=== PATIENT | female | born 1980 | race Caucasian/White ===

== ENCOUNTER 2016-04-25 01:19 | Emergency (ER) | payer BC ==
[2016-04-25 01:32] VITALS: BP 134/97
[2016-04-25] MEDS ORDERED: Sulfamethoxazole/Trimethoprim 800-160 MG Tab PO ONE (02:39)
--- NOTE | 2016-04-25 02:45 | EDM.PDOC ---
ED HPI RENAL/ - General Chief Complaint: Genitourinary Problem Stated Complaint: BLOOD IN URINE Time Seen by Provider: 04/25/16 01:34 Source of Information: Reports: Patient, RN notes reviewed History Limitations: Reports: No limitations - History of Present Illness INITIAL COMMENTS - FREE TEXT/NARRATIVE: The patient states that she developed urinary symptoms, including dysuria, or urgency, and frequency sometime this evening, then developed gross hematuria around 23:00 tonight. She reports a low back ache, but no flank pain. She has had chills and decreased appetite, but no fever, nausea, vomiting, constipation , or diarrhea. She has had similar symptoms in the past, related to a urinary tract infection. Of note, the patient has a history of interstitial cystitis, previously treated with bladder dilatation. - Related Data Allergies/ADRs: Allergies Allergy/AdvReac Type Severity Reaction Status Date / Time fluoxetine HCl [From Prozac] Allergy Unknown Hallucinati Verified 04/25/16 01:32 ons prednisone Allergy Unknown Hallucinati Verified 04/25/16 01:32 ons Home Meds: Home Meds Omeprazole Magnesium [Prilosec Otc] 20 mg PO BID 04/14/14 [History] Sulfamethoxazole/Trimethoprim [Bactrim Ds Tablet] 1 tab PO Q12H #13 tablet 04/25 [Rx] Venlafaxine [Effexor XR 24 Hr] 75 mg PO DAILY 04/25/16 [History] Past Medical History HEENT History: Reports: Allergic rhinitis, Impaired vision Other HEENT History: wears glasses Gastrointestinal History: Reports: GERD Genitourinary History: Reports: Other (see below) (Interstitial cystitis) 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: Psychiatric History: Reports: Anxiety, Depression - Past Surgical History HEENT Surgical History: Reports: Oral surgery ([place] teeth extraction), Tonsillectomy GI Surgical History: Reports: Cholecystectomy Female Surgical History: Reports: section (x 2), Tubal ligation, Other (see below) (Bladder dilatation) Musculoskeletal Surgical History: Reports: Other (see below) (Right hand ligament repair) Social & Family History - Tobacco Use Smoking Status *Q: Never Smoker Second Hand Smoke Exposure: No - Caffeine Use Caffeine Use: Reports: Coffee, Soda, Tea - Alcohol Use Alcohol Use History: Yes Alcohol Use Frequency: Rarely - Recreational Drug Use Recreational Drug Use: No - Living Situation & Occupation Living situation: Reports: , with spouse, with family (2 kids) 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) ED ROS GENERAL - Review of Systems Review Of Systems: See Below Constitutional: Reports: no symptoms HEENT: Reports: No symptoms Respiratory: Reports: No Symptoms Cardiovascular: Reports: No symptoms Endocrine: Reports: no symptoms GI/Abdominal: Reports: No symptoms : Reports: no symptoms Musculoskeletal: Reports: no symptoms Skin: Reports: no symptoms Neurological: Reports: No Symptoms Psychiatric: Reports: No symptoms Hematologic/Lymphatic: Reports: no symptoms Immunologic: Reports: no symptoms ED EXAM, RENAL/ - Physical Exam Exam: See Below Exam Limited By: No limitations General Appearance: alert, WD/WN, no apparent distress Eye Exam: bilateral eye: EOMI, normal inspection Ears: normal external exam, hearing grossly normal Nose: normal inspection, no blood Throat/Mouth: Normal inspection, Normal lips, Normal voice, No airway compromise Head: atraumatic, normocephalic Neck: normal inspection, full range of motion Respiratory/Chest: no respiratory distress, lungs clear, normal breath sounds, no accessory muscle use, chest non-tender Cardiovascular: normal peripheral pulses, regular rate, rhythm, no edema, no gallop, no JVD, no murmur, no rub GI/Abdominal: normal bowel sounds, soft, non tender, no organomegaly, no distention, no abnormal bruit, no mass Back Exam: normal inspection, full range of motion. No: CVA tenderness (L), CVA tenderness (R) Extremities: normal inspection, normal range of motion, non-tender, normal capillary refill, no pedal edema Neurological: alert, oriented, normal cognition, no motor/sensory deficits Psychiatric: normal affect Skin Exam: Warm, Dry, Intact, Normal color, No rash Lymphatic: no adenopathy Course - Vital Signs Last Recorded V/S: Last Vital Signs Temp 36.2 C 04/25/16 01:29 Pulse 76 04/25/16 01:29 Resp 18 04/25/16 01:29 BP 134/97 H 04/25/16 01:29 Pulse Ox 99 04/25/16 01:29 - Orders/Labs/Meds Labs: Laboratory Tests 04/25/16 04/25/16 Range/Units 01:40 01:40 Urine Color Red H (Yellow) Urine Appearance Turbid H (Clear) Urine pH 6.5 (5.0-8.0) Ur Specific [place] > or = 1.030 (1.005-1.030) Urine Protein 3+ H (Negative) Urine Glucose (UA) Negative (Negative) Urine Ketones Negative (Negative) Urine Occult Blood 3+ H (Negative) Urine Nitrite Negative (Negative) Urine Bilirubin Negative (Negative) Urine Urobilinogen 0.2 (0.2-1.0) Ur Leukocyte Esterase Trace H (Negative) Urine RBC Too numerous to cnt H (0-5) /hpf Urine WBC 75-100 H (0-5) /hpf Urine WBC Clumps Not seen (NOT SEEN) /hpf Ur Epithelial Cells 0-5 (0-5) /hpf Urine Bacteria Few (FEW) /hpf Urine Mucus Not seen (FEW) /hpf Urine Yeast Not seen (NOT SEEN) Urine HCG, Qual Negative (NEGATIVE) Meds: Medications Discontinued Medications Generic Name Dose Route Start Last Admin Trade Name Freq PRN Reason Stop Dose Admin Trimethoprim/Sulfamethoxazole 1 tab 04/25/16 02:39 04/25/16 02:47 Septra Ds PO 04/25/16 02:40 1 tab ONETIME ONE Administration - Re-Assessments/Exams Free Text/Narrative Re-Assessment/Exam: 04/25/16 02:39 Test results discussed with the patient. Her urinalysis shows a large number of white blood cells and red blood cells, but only a few bacteria. It is unclear if this is due to a UTI, however, the patient has no clinical features consistent with a ureterolith, therefore I am going to treat the patient as if she has a UTI by starting her on oral Bactrim. I have sent a urine for culture , and have asked the patient to followup with her PCP, Graciela Lerma, in 3 days to check on the urine culture results. Departure - Departure Time of Disposition: 02:40 Disposition: Home, Self-Care 01 Condition: good Clinical Impression: UTI (urinary tract infection) Prescriptions: Sulfamethoxazole/Trimethoprim [Bactrim Ds Tablet] 1 tab PO Q12H #13 tablet Instructions: Urinary Tract Infection, Adult Referrals: Graciela Lerma, HEARING AID MECHANIC [Primary Care Provider] - Forms: ED Department Discharge Additional Instructions: You were seen in the emergency room tonight for bloody urine and urinary symptoms. Workup in the emergency room included a urinalysis and urine test. Your urine shows a lot of blood and white blood cells, but only a few bacteria. It is MOST LIKELY that you have a urinary tract infection. A sample of your urine has been sent for culture. You have been started on the antibiotic Bactrim. Take one tablet every 12 hours , as prescribed. Finish the entire prescription unless told otherwise by your doctor. Stay adequately hydrated. Followup with the office of Graciela Lerma seen to 3 days, to check on the urine culture results, to make sure that you are on the correct antibiotic. If any other problems, please do not hesitate to return to the ER.
== END 2016-04-25 02:50 | disposition home or self-care (01) ==
LOC: JD.ED 01:19
DX: N39.0 Urinary tract infection, site not specified (principal); K21.9 Gastro-esophageal reflux disease without esophagitis; F41.9 Anxiety disorder, unspecified; F32.9 Major depressive disorder, single episode, unspecified; Z98.890 Other specified postprocedural states; Z90.49 Acquired absence of other specified parts of digestive tract; Z98.51 Tubal ligation status; Z88.8 Allergy status to other drugs, medicaments and biological substances; Z79.899 Other long term (current) drug therapy
CPT/HCPCS: 81001; 81025; 87086; 87088; 87186; 99283; A9270

== ENCOUNTER 2016-06-14 10:53 | Emergency (ER) | payer BC ==
[2016-06-14 11:03] VITALS: BP 150/96
[2016-06-14] MEDS ORDERED: Acetaminophen/oxyCODONE 325-5 MG Tab PO ONE (11:24)
[2016-06-14] MEDS ORDERED: Lidocaine 1% 50 ML MDV INJECT ONE (11:28)
--- NOTE | 2016-06-14 11:29 | EDM.PDOC ---
ED HPI GENERAL MEDICAL PROBLEM - General Chief Complaint: Bite:Animal, Insect Stated Complaint: DOG BITE RT HAND Time Seen by Provider: 06/14/16 11:16 Source of Information: Reports: Patient History Limitations: Reports: No limitations - History of Present Illness INITIAL COMMENTS - FREE TEXT/NARRATIVE: 36-year-old female presents evaluation and treatment of a dog bite to the right hand. Patient reports that the neighbor's Swazi Robert hopped into her truck. She states she went to move the dog and the dog bit her right hand. She reports lacerations to her dorsal right hand and her right lateral hand. She states the bite on the lateral aspect is very painful. She has full range of motion of the hand. She reports some tingling along the ulnar side of the hand and forearm initially but has now mostly resolved. Patient states that her tetanus is up to date. Patient's reports of the dog's vaccines including rabies are up to date. Patient is right handed. Location: Reports: upper extremity, right Right Hand Pain Score (Numeric/FACES): 7 - Related Data Allergies Allergy/AdvReac Type Severity Reaction Status Date / Time fluoxetine HCl [From Prozac] Allergy Unknown Hallucinati Verified 06/14/16 11:03 ons prednisone Allergy Unknown Hallucinati Verified 06/14/16 11:03 ons Home Meds: Home Meds Venlafaxine [Effexor XR 24 Hr] 75 mg PO DAILY 04/25/16 [History] Acetaminophen/oxyCODONE [Percocet 325-5 MG] 1 tab PO Q6H PRN #10 tablet [Rx] Amoxicillin/Clavulanate K [Augmentin 875 MG/125 MG] 1 tab PO Q12HR #20 tablet [Rx] Cetirizine [ZyrTEC] 10 mg PO DAILY 06/14/16 [History] Fluticasone Propionate [Flonase] 1 spray NASBOTH DAILY 06/14/16 [History] Past Medical History - Past Health History Medical/Surgical History: Denies Medical/Surgical History HEENT History: Reports: Allergic rhinitis, Impaired vision Other HEENT History: wears glasses Gastrointestinal History: Reports: GERD Genitourinary History: Reports: Other (see below) (Interstitial cystitis) 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: Psychiatric History: Reports: Anxiety, Depression - Past Surgical History HEENT Surgical History: Reports: Oral surgery, Tonsillectomy GI Surgical History: Reports: Cholecystectomy Female Surgical History: Reports: section, Tubal ligation Musculoskeletal Surgical History: Reports: Other (see below) Other Musculoskeletal Surgeries/Procedures:: ligament repair Social & Family History - Tobacco Use Smoking Status *Q: Never Smoker Second Hand Smoke Exposure: No - Caffeine Use Caffeine Use: Reports: Coffee - Alcohol Use Days Per Week of Alcohol Use: 0 - Recreational Drug Use Recreational Drug Use: No - Living Situation & Occupation Living situation: Reports: , with spouse, with family (2 kids) 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 Denies: Numbness ED EXAM, ANIMAL BITE - Physical Exam Exam: See Below Exam Limited By: No limitations General Appearance: alert, WD/WN, no apparent distress Cardiovascular: normal peripheral pulses Peripheral Pulses: 2+: radial (L), radial (R) Neurological: alert, oriented, normal cognition Psychiatric: normal affect, normal mood Skin Exam: Normal color, Warm/dry, Other (right dorsal hand 2.7 gapping laceration, 1 cm laceration and 2 0.5cm puncture wounds; right lateral hand, ulnar side, 1cm laceration) ED ANIMAL BITE PROCEDURES - Laceration/Wound Repair Right Dorsal Hand Lac/wound length in cm: 2.7 Appearance: subcutaneous, linear, clean Distal NVT: neuro & vascular intact, no tendon injury Anesthetic type: local Local anesthesia - Lidocaine (Xylocaine): 1% plain Local anesthetic volume: 4cc Skin prep: saline, sterile drape, other (surclens) Saline irrigation (cc's): 160 Closed with: sutures Suture size: 4-0 # of sutures: 6 Suture type: nylon, interrupted, simple Sterile dressing applied: nurse Tetanus status addressed: Yes Complications: No Right Lateral Hand Lac/wound length in cm: 1 Appearance: subcutaneous, linear Distal NVT: neuro & vascular intact, no tendon injury Anesthetic type: local Local anesthesia - Lidocaine (Xylocaine): 1% plain Local anesthetic volume: 4cc Skin prep: saline, sterile drape, other (surclens) Saline irrigation (cc's): 200 Closed with: sutures Suture size: 4-0 # of sutures: 2 Suture type: nylon, interrupted, simple Sterile dressing applied: nurse Tetanus status addressed: Yes Complications: No - Splinting Right Upper Extremity Splint site: right wrist and distal forearm Pre-procedure NV status: normal Post-procedure NV status: normal Splint material: other (orthoglass) Splint design: gutter (ulnar) Applied & form fitted by: provider, nurse Provider post-splint application NV check: NV status normal, good position Complications: No Course - Vital Signs Last Recorded V/S: Last Vital Signs Temp 36.7 C 06/14/16 10:59 Pulse 90 06/14/16 10:59 Resp 16 06/14/16 10:59 BP 150/96 H 06/14/16 10:59 Pulse Ox 99 06/14/16 10:59 - Orders/Labs/Meds Orders: Active Orders 24 hr Category Date Time Status Hand Comp Min 3V Rt [CR] Stat Exams 06/14/16 11:24 Taken Meds: Medications Discontinued Medications Generic Name Dose Route Start Last Admin Trade Name Baljeetq PRN Reason Stop Dose Admin Lidocaine HCl 50 ml 06/14/16 11:28 06/14/16 11:54 Xylocaine 1% INJECT 06/14/16 11:29 50 ml ONETIME ONE Administration Oxycodone/Acetaminophen 1 tab 06/14/16 11:24 06/14/16 11:29 Percocet 325-5 Mg PO 06/14/16 11:25 1 tab ONETIME ONE Administration - Radiology Interpretation Free Text/Narrative:: xray of the right hand shows no fractures or foreign bodies. - Re-Assessments/Exams Free Text/Narrative Re-Assessment/Exam: 06/14/16 12:47 8 sutures in total were placed the patient's right hand. 6 to the dorsal side and 2 to the lateral side. The patient tolerated the procedure well. I review the x-ray results with the patient. No fractures or foreign bodies. I decided to go ahead and splint the patient in an ulnar gutter splint to prevent any movements and allowed the wounds heal properly. She'll be started on Augmentin. Discharge instructions as documented. Departure - Departure Time of Disposition: 13:00 Disposition: Home, Self-Care 01 Condition: fair Clinical Impression: Dog bite of arm, Bite wound of forearm - Discharge Information Prescriptions: Amoxicillin/Clavulanate K [Augmentin 875 MG/125 MG] 1 tab PO Q12HR #20 tablet Acetaminophen/oxyCODONE [Percocet 325-5 MG] 1 tab PO Q6H PRN #10 tablet PRN Reason: Pain Instructions: Animal Bite, [id number] Referrals: Graciela Lerma PUMPER BREWERY [Primary Care Provider] - Forms: ED Department Discharge Additional Instructions: You were given medication in the ER that can affect your ability to drive and operate machinery. No driving or operating machinery within 12 hours of taking prescription narcotic pain medication. Augmentin 1 tab PO bid x 10 days. Take with food. Yogurt or a probiotic if you experience nausea, diarrhea and abdominal pain. Ibuprofen as needed for pain 600mg PO every 6 hours. Percocet 5-325 mg 1-2 tabs PO every 4-6 hours prn severe pain. No driving or operating machinery within 12 hours of taking percocet. Percocoet can be habit forming. I recommend you take as few of these as needed to control your pain. Wear splint at all other times, remove in 1 week (or earlier if having significant pain, swelling or erythema) to allow sutures to heel. Follow-up with PCP in 10 days for suture removal and recheck. Please return to the ER should your symptoms change or worsen. - My Orders Last 24 Hours: My Active Orders 06/14/16 11:24 Hand Comp Min 3V Rt [CR] Stat - Assessment/Plan Last 24 Hours: My Active Orders 06/14/16 11:24 Hand Comp Min 3V Rt [CR] Stat
--- NOTE | 2016-06-15 11:56 | CR ---
Right hand: Four views of the right hand were obtained. Comparison: No previous hand study. Joint spaces are maintained. Sclerotic bone island is incidentally noted within the distal radius. Soft tissue injury is seen posteriorly with soft tissue swelling and soft tissue air. No opaque foreign object is seen. No fracture or other bony abnormality is identified. Impression: 1. Soft tissue injury posteriorly. 2. No acute bony abnormality is identified. Diagnostic code #3
== END 2016-06-14 13:02 | disposition home or self-care (01) ==
LOC: JD.ED 10:53
DX: S61.451A Open bite of right hand, initial encounter (principal); W54.0XXA Bitten by dog, initial encounter; K21.9 Gastro-esophageal reflux disease without esophagitis; F41.8 Other specified anxiety disorders; Z90.49 Acquired absence of other specified parts of digestive tract; Z98.890 Other specified postprocedural states; Z79.899 Other long term (current) drug therapy; Z88.8 Allergy status to other drugs, medicaments and biological substances
CPT/HCPCS: 12002; 29125; 73130; 99284; A9270; 99283

== ENCOUNTER 2016-06-26 19:26 | Emergency (ER) | payer BC ==
--- NOTE | 2016-06-26 20:08 | EDM.PDOC ---
ED HPI GENERAL MEDICAL PROBLEM - General Stated Complaint: DOG BITE RECHECK Time Seen by Provider: 06/26/16 19:42 Source of Information: Reports: Patient, Family (), RN Notes Reviewed History Limitations: Reports: No Limitations - History of Present Illness INITIAL COMMENTS - FREE TEXT/NARRATIVE: The patient states that she was bitten on her right wrist by her neighbor's dog on 06/10/2016. She was seen in this ED on that date. She states that the wound was irrigated, x-rays were taken which did not show a fracture, the wounds were sutured, she was started on Augmentin, and her wrist splinted. She states that she followed up in the [facility] 2 days later, on 06/16/2016, at which time she states that the wound was infected. She was given 2 g of IM Rocephin and prescribed 7 days of oral Levaquin and clindamycin. She was reevaluated 6 days ago on 06/20/2016, where, she states, her ESR was found to be elevated, but other blood work was okay. She was not given any new prescriptions, however, 3 days later on , 06/23/2016, she had increased pain in her right wrist. She was seen again in the [facility] on Monday, , where the sutures were removed. Because of her discomfort, new 4-day prescriptions for Levaquin and clindamycin were written. New x-rays were taken , but she does not have the results. She was prescribed [place]. She now presents because she is generally feeling poorly today. She reports pain in her right wrist, and a temperature up to 100.0 today. She took Tylenol. Right Hand Pain Score (Numeric/FACES): 6 - Related Data Allergies Allergy/AdvReac Type Severity Reaction Status Date / Time fluoxetine HCl [From Prozac] Allergy Unknown Hallucinati Verified 06/14/16 11:03 ons prednisone Allergy Unknown Hallucinati Verified 06/14/16 11:03 ons Home Meds: Home Meds Venlafaxine [Effexor XR 24 Hr] 75 mg PO DAILY 04/25/16 [History] Acetaminophen/oxyCODONE [Percocet 325-5 MG] 1 tab PO Q6H PRN #10 tablet [Rx] Amoxicillin/Clavulanate K [Augmentin 875 MG/125 MG] 1 tab PO Q12HR #20 tablet [Rx] Cetirizine [ZyrTEC] 10 mg PO DAILY 06/14/16 [History] Fluticasone Propionate [Flonase] 1 spray NASBOTH DAILY 06/14/16 [History] Past Medical History HEENT History: Reports: Allergic Rhinitis, Impaired Vision Other HEENT History: wears glasses Gastrointestinal History: Reports: GERD Genitourinary History: Reports: Other (See Below) (Interstitial cystitis) 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: Psychiatric History: Reports: Anxiety, Depression - Past Surgical History HEENT Surgical History: Reports: Oral Surgery ([place] teeth extraction), Tonsillectomy GI Surgical History: Reports: Cholecystectomy Female Surgical History: Reports: Section (x 2), Tubal Ligation, Other (See Below) (Bladder dilatation) Musculoskeletal Surgical History: Reports: Other (See Below) (Right 2nd finger ligament repair) Social & Family History - Tobacco Use Smoking Status *Q: Never Smoker Second Hand Smoke Exposure: No - Caffeine Use Caffeine Use: Reports: Coffee - Alcohol Use Alcohol Use History: Yes Alcohol Use Frequency: Socially - Recreational Drug Use Recreational Drug Use: No - Living Situation & Occupation Living situation: Reports: , with Spouse, with Family (2 kids) 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) ED ROS GENERAL - Review of Systems Review Of Systems: See Below Constitutional: Reports: Malaise HEENT: Reports: No Symptoms Respiratory: Reports: No Symptoms Cardiovascular: Reports: No Symptoms Endocrine: Reports: No Symptoms GI/Abdominal: Reports: No Symptoms : Reports: No Symptoms Musculoskeletal: Reports: No Symptoms Skin: Reports: No Symptoms Neurological: Reports: No Symptoms Psychiatric: Reports: No Symptoms Hematologic/Lymphatic: Reports: No Symptoms Immunologic: Reports: No Symptoms ED EXAM, SKIN/RASH Exam: See Below Exam Limited By: No Limitations General Appearance: Alert, WD/WN, No Apparent Distress Extremities: Other (Possibly 0.5 cm linear laceration to the dorsal aspect of the patient's right wrist, healing well, with granulation tissue noted. No surrounding erythema or swelling. No calor to the area. Well-healing wound to the ulnar aspect of the right hand. No suggestion of infection, such as swelling, erythema, or calor. Neurovascular status of the right upper extremity is intact.) Course - Vital Signs Last Recorded V/S: Last Vital Signs Temp 36.5 C 06/26/16 20:05 Pulse 86 06/26/16 20:05 Resp 20 06/26/16 20:05 BP 141/91 H 06/26/16 20:05 Pulse Ox 97 06/26/16 20:05 - Re-Assessments/Exams Free Text/Narrative Re-Assessment/Exam: 06/26/16 19:56 The patient presents because she is feeling poorly and had a temperature of 100.0 at home, however, there is no suggestion of infection to the 2-week-old dog bite sites. There is granulation tissue at the center of the wound, and no surrounding erythema, swelling, or calor. I do not see an indication for blood work, as no matter what the results, the patient's wound is still not infected. She has one day left of her clindamycin and Levaquin, which she might as well finish, but I do not see an indication for additional antibiotics. Departure - Departure Time of Disposition: 20:04 Disposition: Home, Self-Care 01 Condition: good Clinical Impression: Dog bite - Discharge Information Instructions: Animal Bite, [id number] Referrals: Graciela Lerma, PRESS TENDER STAR SIGNAL [Primary Care Provider] - Forms: ED Department Discharge Additional Instructions: You were seen in the emergency room for feeling poorly, having pain in your right wrist, and a mildly elevated temperature. You were concerned that the 2- week-old dog bite wound might still be infected. On examination, there is no sign of infection. The wounds are healing appropriately. Your feeling ill may be due to something else, such as a viral illness. Since you only have one more day left on your previous prescriptions of clindamycin and Levaquin, it is okay to finish them. We recommend you take [id number] ibuprofen 2-3 tablets (400-600 mg) every 8 hours, with food, as needed for discomfort Followup with your PCP, Graciela Lerma, as needed. If any other problems, please do not hesitate to return to the ER.
[2016-06-26 20:10] VITALS: BP 141/91
== END 2016-06-26 20:20 | disposition home or self-care (01) ==
LOC: JD.ED 19:26 → SUPCPDRO 19:26 → JD.ED 20:20
DX: S61.511D Laceration without foreign body of right wrist, subsequent encounter (principal); K21.9 Gastro-esophageal reflux disease without esophagitis; F41.9 Anxiety disorder, unspecified; F32.9 Major depressive disorder, single episode, unspecified; Z79.899 Other long term (current) drug therapy; Z90.49 Acquired absence of other specified parts of digestive tract; W54.0XXD Bitten by dog, subsequent encounter
CPT/HCPCS: 99283

== ENCOUNTER 2017-01-27 11:05 | Day surgery (SDC) | payer BC ==
[~2017-01-27 11:05] MED LIST: Lactated Ringers 1,000 ML IV SCH; Lidocaine 1%/Sod Bicarbonate in NS 8.4% 1 ML Syringe IV PRN; Sodium Chloride 0.9% 10 ML Syringe FLUSH PRN
[2017-01-27] MEDS ORDERED: fentaNYL 250 MCG/5 ML SDV ONE (11:27)
[2017-01-27] MEDS ORDERED: Propofol 200 MG/20 ML SDV ONE ×2 (11:28→13:01)
[2017-01-27] MEDS ORDERED: ceFAZolin 1 GM Vial ONE (11:28)
[2017-01-27] MEDS ORDERED: Ketorolac 30 MG/ML SDV ONE (11:28)
[2017-01-27] MEDS ORDERED: HYDROmorphone 1 MG/ML Syringe ONE ×2 (11:28→13:37)
[2017-01-27] MEDS ORDERED: Ondansetron 4 MG/2 ML SDV ONE (11:28)
[2017-01-27] MEDS ORDERED: Rocuronium 50 MG/5 ML Vial ONE (11:28)
[2017-01-27] MEDS ORDERED: Midazolam 1 MG/ML 2 ML SDV ONE (11:28)
[2017-01-27] MEDS ORDERED: Lactated Ringers 1,000 ML ONE (11:28)
[2017-01-27] MEDS ORDERED: Lidocaine 1% 4 ML ONE (11:28)
[2017-01-27] MEDS ORDERED: Dexamethasone 4 MG/ML SDV ONE (11:28)
--- NOTE | 2017-01-27 11:51 | PCM.PREANE ---
Preanesthetic Assessment - Procedure Proposed Procedure: LAVH - Anesthesia/Transfusion/Family Hx Anesthesia History: Prior Anesthesia Without Reaction Type of Anesthesia Reaction: Excessive Nausea/Vomiting Family History of Anesthesia Reaction: No Transfusion History: No Prior Transfusion(s) - Review of Systems General: No Symptoms Pulmonary: No Symptoms Cardiovascular: No Symptoms Gastrointestinal: No Symptoms Neurological: No Symptoms Other: Reports: None, Depression, Anxiety - Physical Assessment NPO Status Date: 01/27/17 NPO Status Time: 06:30 Pulse: 68 O2 Sat by Pulse Oximetry: 97 Respiratory Rate: 16 Blood Pressure: 135/89 Temperature: 36.9 C Height: 1.63 m Weight: 92.533 kg ASA Class: 2 Mental Status: Alert & Oriented x3 Airway Class: Mallampati = 2 Dentition: Reports: Normal Dentition Thyro-Mental Finger Breadths: 2 Mouth Opening Finger Breadths: 3 ROM/Head Extension: Full Lungs: Clear to Auscultation, Normal Respiratory Effort Cardiovascular: Regular Rate, Regular Rhythm - Allergies Allergies/Adverse Reactions: Allergies Allergy/AdvReac Type Severity Reaction Status Date / Time fluoxetine HCl [From Prozac] Allergy Unknown Hallucinati Verified 01/26/17 16:12 ons prednisone Allergy Unknown Hallucinati Verified 01/26/17 16:12 ons - Blood Blood Available: No Product(s) Available: None - Anesthesia Plan Pre-Op Medication Ordered: None - Acknowledgements Anesthesia Type Planned: General Anesthesia Pt an Appropriate Candidate for the Planned Anesthesia: Yes Alternatives and Risks of Anesthesia Discussed w Pt/Guardian: Yes Pt/Guardian Understands and Agrees with Anesthesia Plan: Yes PreAnesthesia Questionnaire - Past Health History Medical/Surgical History: Denies Medical/Surgical History HEENT History: Reports: Allergic Rhinitis, Impaired Vision, Otitis Media, Sinusitis, Other (See Below) Other HEENT History: wears glasses, left ear pain Cardiovascular History: Reports: None Respiratory History: Reports: Bronchitis, Recurrent, Sleep Apnea Gastrointestinal History: Reports: GERD Genitourinary History: Reports: Other (See Below) INCIDENT HANDLER History: Reports: Polycystic Ovaries, , Other (See Below) Other OB/BYN History: dysmenorrhea Musculoskeletal History: Reports: None Neurological History: Reports: None Psychiatric History: Reports: Anxiety, Depression Endocrine/Metabolic History: Reports: None Hematologic History: Reports: Anemia Immunologic History: Reports: None Oncologic (Cancer) History: Reports: None Dermatologic History: Reports: None - Past Surgical History Head Surgeries/Procedures: Reports: None HEENT Surgical History: Reports: Oral Surgery, Tonsillectomy Cardiovascular Surgical History: Reports: None Respiratory Surgical History: Reports: None GI Surgical History: Reports: Cholecystectomy Female Surgical History: Reports: Section, Tubal Ligation, Other ( See Below) Endocrine Surgical History: Reports: None Neurological Surgical History: Reports: None Musculoskeletal Surgical History: Reports: Other (See Below) Other Musculoskeletal Surgeries/Procedures:: ligament repair Oncologic Surgical History: Reports: None Dermatological Surgical History: Reports: None - SUBSTANCE USE Smoking Status *Q: Never Smoker Tobacco Use Within Last Twelve Months: No Second Hand Smoke Exposure: No Days Per Week of Alcohol Use: 0 Recreational Drug Use History: No - HOME MEDS Home Medications: Home Meds Venlafaxine [Effexor XR 24 Hr] 75 mg PO DAILY 04/25/16 [History] Cetirizine [ZyrTEC] 10 mg PO DAILY 06/14/16 [History] Fluticasone Propionate [Flonase] 1 spray NASBOTH DAILY PRN 06/14/16 [History] - CURRENT (IN HOUSE) MEDS Current Meds: Current Medications Lactated Ringer's (Ringers, Lactated) 1,000 mls @ 125 mls/hr IV ASDIRECTED RICHARD Stop: 01/27/17 18:00 Lidocaine/Sodium Bicarbonate (Buffered Lidocaine 1% In Ns 8.4%) 0.25 ml IV ONETIME PRN PRN Reason: Prior to IV Start Stop: 01/27/17 18:00 Sodium Chloride (Saline Flush) 10 ml FLUSH ASDIRECTED PRN PRN Reason: Keep Vein Open Stop: 01/27/17 18:00 Discontinued Medications Cefazolin Sodium (Ancef) Confirm Administered Dose 2 gm .ROUTE .STK-MED ONE Stop: 01/27/17 11:29 Dexamethasone (Dexamethasone) Confirm Administered Dose 8 mg .ROUTE .STK-MED ONE Stop: 01/27/17 11:29 Fentanyl (Sublimaze) Confirm Administered Dose 250 mcg .ROUTE .STK-MED ONE Stop: 01/27/17 11:28 Hydromorphone HCl (Dilaudid) Confirm Administered Dose 1 mg .ROUTE .STK-MED ONE Stop: 01/27/17 11:29 Lactated Ringer's (Ringers, Lactated) Confirm Administered Dose 1,000 mls @ as directed .ROUTE .STK-MED ONE Stop: 01/27/17 11:29 Lidocaine HCl (Xylocaine-Mpf 1%) Confirm Administered Dose 4 mls @ as directed .ROUTE .STK-MED ONE Stop: 01/27/17 11:29 Ketorolac Tromethamine (Toradol) Confirm Administered Dose 30 mg .ROUTE .STK- MED ONE Stop: 01/27/17 11:29 Midazolam HCl (Versed 1 Mg/Ml) Confirm Administered Dose 2 mg .ROUTE .STK-MED ONE Stop: 01/27/17 11:29 Ondansetron HCl (Zofran) Confirm Administered Dose 4 mg .ROUTE .STK-MED ONE Stop: 01/27/17 11:29 Propofol (Diprivan 20 Ml) Confirm Administered Dose 200 mg .ROUTE .STK-MED ONE Stop: 01/27/17 11:29 Rocuronium [place] (Zemuron) Confirm Administered Dose 50 mg .ROUTE .STK-MED ONE Stop: 01/27/17 11:29
[2017-01-27] MEDS ORDERED: Bupivacaine 0.5% 30 ML SDV ONE (12:02)
[2017-01-27] MEDS ORDERED: Lidocaine 1% with EPINEPHrine 1:100,000 20 ML MDV ONE (12:02)
[2017-01-27] MEDS ORDERED: Sodium Chloride 0.9% 50 ML SDV ONE (12:02)
[2017-01-27] MEDS ORDERED: Scopolamine 1.5 MG Transdermal Patch TRDERM ONE (12:10)
[2017-01-27] MEDS ORDERED: Ondansetron 4 MG/2 ML SDV IVPUSH PRN (13:16)
[2017-01-27] MEDS ORDERED: fentaNYL 100 MCG/2 ML SDV IVPUSH PRN (13:16)
[2017-01-27] MEDS ORDERED: Midazolam 1 MG/ML 2 ML SDV IVPUSH PRN (13:16)
[2017-01-27] MEDS ORDERED: ePHEDrine 50 MG/ML SDV IVPUSH PRN (13:16)
[2017-01-27] MEDS ORDERED: HYDROmorphone 0.5 MG/0.5 ML Syringe IVPUSH PRN (13:16)
[2017-01-27] MEDS ORDERED: diphenhydrAMINE 50 MG/ML SDV IVPUSH PRN (13:16)
[2017-01-27] MEDS ORDERED: Phenylephrine 1 MG in Sodium Chloride 0.9% 10 ML IV SCH (13:30)
[2017-01-27] MEDS ORDERED: Neostigmine Methylsulfate 1 MG/ML 5 ML Syringe ONE (13:45)
--- NOTE | 2017-01-27 13:50 | PCM.OPNOTE ---
- General Post-Op/Procedure Note Date of Surgery/Procedure: 01/27/17 Operative Procedure(s): Total vaginal hysterectomy bilateral salpingectomy ( neither ovary removed) [id number] Pre Op Diagnosis: Menorrhagia, abnormal uterine bleeding, history of anemia. Post-Op Diagnosis: Same Anesthesia Technique: General ET Tube Primary Surgeon: Beau Deleon Secondary Surgeon: Parrish Calhoun Anesthesia Provider: Shilpa Almaraz Labor Relations Worker: Samuel Saldaña Reason Labor Relations Worker Was Necessary: Difficulty of surgery requiring assistance, decrease comorbidity and co- mortality Role of Labor Relations Worker: Difficulty of surgery requiring assistance, decrease comorbidity and co- mortality Fluid Replacement, Intraop: 900 Output, Urine Amount: 50 EBL in mLs: 200 Drain/Tube Comments:: None Complications: None Condition: Good Free Text/Narrative:: Patient was transported to operating room #2 and placed under general anesthesia in low dorsal lithotomy position and prepared and draped in a sterile fashion. Prior to preparation examination under anesthesia revealed more descensus than able to be determined in the office patient had 2 previous C -sections but it was determined that a vaginal hysterectomy without flap scope portion could be attempted. (Total vaginal hysterectomy bilateral salpingectomy was performed) SCDs in place and functioning prior surgery. Proceeded 2 g of Ancef IV prior surgery. Timeout performed. Having been prepared and draped in sterile fashion the bladder was drained of urine told 50 mL. 20 mL of 0.25% lidocaine with epinephrine injected in multiple confluent areas around the cervix. Circumscribing the cervix with sharp knife. Posterior colpotomy was then performed and utilizing LigaSure crossclamping activating and incising and proceeding cephalad left side then right side until the triple pedicles were approximated crossclamped with Sherwin clamps and the uterus removed intact with the cervix. Both ovaries appeared normal and were not removed. The left tube was grasped and portions of the fallopian tube removed (patient had had previous tubal ligation) same procedure was carried out on the left side. Both ovaries appeared normal no bleeding posterior anterior cuff were closed running locking suture and approximated with running locking suture. Sponge needle pack asthma sharp count correct 2 no blood transfusions required patient was transported postanesthesia care unit in satisfactory condition. I talked with patient's and discussed surgery and all questions answered to his voiced satisfaction. Prescription for Percocet 3/325 Gonzalez 25 sig 1-2 by mouth every 6-8 hours when necessary pain and prescription for Zofran ODT 1 sublingual 4 mg every 6-8 hours. Dispense 20. Patient has appointment see me in 2 weeks in the office.
--- NOTE | 2017-01-27 14:01 | PCM.POSTAN ---
POST ANESTHESIA ASSESSMENT - MENTAL STATUS Mental Status: Alert - VITAL SIGNS Pulse Rate: 115 SaO2: 100 Resp Rate: 15 Blood Pressure: 153/88 Temperature: 36.4 C - RESPIRATORY Respiratory Status: Respiratory Rate WNL, Airway Patent, O2 Saturation Stable, Supplemental Oxygen - CARDIOVASCULAR CV Status: Pulse Rate WNL, Blood Pressure Stable - GASTROINTESTINAL GI Status: No Symptoms - POST OP HYDRATION Hydration Status: Adequate & Stable
[2017-01-27] MEDS ORDERED: Acetaminophen/oxyCODONE 325-5 MG Tab PO PRN (15:06)
--- NOTE | 2017-01-27 15:18 | PCM48HPAN ---
Post Anesthesia Note - EVALUATION WITHIN 48HRS OF ANESTHETIC Vital Signs in Normal Range: Yes Patient Participated in Evaluation: Yes Respiratory Function Stable: Yes Airway Patent: Yes Cardiovascular Function Stable: Yes Hydration Status Stable: Yes Pain Control Satisfactory: Yes Nausea and Vomiting Control Satisfactory: Yes Mental Status Recovered: Yes
[2017-01-27 16:10] VITALS: BP 129/89
== END 2017-01-27 16:05 | disposition home or self-care (01) ==
LOC: JD.SDS 11:05
PROVIDERS: ATTEND Obstetrics & Gynecology
DX: N80.0 Endometriosis of uterus (principal); F41.9 Anxiety disorder, unspecified; F32.9 Major depressive disorder, single episode, unspecified; G47.33 Obstructive sleep apnea (adult) (pediatric); Z88.8 Allergy status to other drugs, medicaments and biological substances; Z79.899 Other long term (current) drug therapy; Z72.0 Tobacco use
CPT/HCPCS: 36415; 58262; 86850; 86900; 86901; A9270; J0690; J1100; J1170; J1885; J2250; J2405; J2710; J3010; J7120; 00944; J2704

== ENCOUNTER 2019-04-13 13:00 | Emergency (ER) | payer BC, OTHER ==
[2019-04-13] MEDS ORDERED: Sodium Chloride 0.9% 10 ML Syringe FLUSH PRN (13:51)
[2019-04-13] MEDS ORDERED: Ketorolac 30 MG/ML SDV IVPUSH ONE (13:51)
[2019-04-13] MEDS ORDERED: Sodium Chloride 0.9% 1,000 ML IV SCH (14:00)
[2019-04-13] MEDS ORDERED: Ondansetron 4 MG/2 ML SDV IVPUSH ONE (14:31)
[2019-04-13] MEDS ORDERED: HYDROmorphone 0.5 MG/0.5 ML Syringe IVPUSH ONE (16:14)
--- NOTE | 2019-04-13 17:04 | EDM.PDOC ---
ED HPI GENERAL MEDICAL PROBLEM - General Chief Complaint: Headache Stated Complaint: PNEUMONIA NOT GETTING BETTER Time Seen by Provider: 04/13/19 13:25 Source of Information: Reports: Patient History Limitations: Reports: No Limitations - History of Present Illness INITIAL COMMENTS - FREE TEXT/NARRATIVE: Patient is a 39-year-old female who presents with complaints of headache, fatigue, body aches and nausea. Patient states the symptoms began last . She was seen in the clinic on Monday and had a work-up including an influenza screen, blood work including Monospot and mycoplasma pneumonia. She was diagnosed with a right-sided ear infection as well as mycoplasma pneumonia she just completed a course of Zithromax yesterday. Patient states that she was feeling a little bit better on . She attempted to go get her haircut today, however however was unable to due to her headache and body aches. She took some ibuprofen this morning. She did have a flu shot this year. Denies any burning with urination. She has had some intermittent diarrhea over the last week. States that she has had some low-grade fevers ranging from 99-100, but nothing overly significant. Denies any vision changes , or vomiting. Headache Pain Score (Numeric/FACES): 8 - Related Data Allergies Allergy/AdvReac Type Severity Reaction Status Date / Time fluoxetine HCl [From Prozac] AdvReac Unknown Hallucinati Verified 04/13/19 13:21 ons prednisone AdvReac Unknown Hallucinati Verified 04/13/19 13:21 ons Home Meds: Home Meds Venlafaxine [Effexor XR] 75 mg PO DAILY 04/25/16 [History] Cetirizine [ZyrTEC] 10 mg PO DAILY 06/14/16 [History] Fluticasone Propionate [Flonase] 1 spray NASBOTH DAILY PRN 06/14/16 [History] Acetaminophen/HYDROcodone [[place] 325-5 MG] 1 tab PO Q6H PRN #5 tablet 04/13/19 [ Rx] Hydrocodone/Acetaminophen [Hydrocodon-Acetaminophen 5-325] 1 tab PO Q6H PRN 08/25 [History] traMADol [Ultram] 50 mg PO DAILY PRN 04/13/19 [History] Past Medical History - Past Health History Medical/Surgical History: Denies Medical/Surgical History HEENT History: Reports: Allergic Rhinitis, Impaired Vision Other HEENT History: wears glasses Cardiovascular History: Reports: None Respiratory History: Reports: Bronchitis, Recurrent, Sleep Apnea Gastrointestinal History: Reports: GERD Genitourinary History: Reports: Other (See Below) PROGRAM FACILITATOR History: Reports: Other PROGRAM FACILITATOR History: dysmenorrhea Musculoskeletal History: Reports: None Neurological History: Reports: None Psychiatric History: Reports: Anxiety, Depression Endocrine/Metabolic History: Reports: None Hematologic History: Reports: Anemia Immunologic History: Reports: None Oncologic (Cancer) History: Reports: None Dermatologic History: Reports: None - Past Surgical History Head Surgeries/Procedures: Reports: None Cardiovascular Surgical History: Reports: None Respiratory Surgical History: Reports: None GI Surgical History: Reports: Cholecystectomy Other Female Surgeries/Procedures: x2 Endocrine Surgical History: Reports: None Neurological Surgical History: Reports: None Musculoskeletal Surgical History: Reports: Shoulder Surgery, Other (See Below) Other Musculoskeletal Surgeries/Procedures:: ligament repair Oncologic Surgical History: Reports: None Dermatological Surgical History: Reports: None Social & Family History - Family History Family Medical History: Noncontributory - Tobacco Use Smoking Status *Q: Never Smoker - Caffeine Use Caffeine Use: Reports: Coffee - Recreational Drug Use Recreational Drug Use: No - Living Situation & Occupation Living situation: Reports: , with Spouse, with Family (2 kids) 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 Denies: Shortness of Breath, Wheezing, Cough Cardiovascular: Reports: No Symptoms. Denies: Chest Pain, Dyspnea on Exertion, Lightheadedness, Palpitations Endocrine: Reports: No Symptoms GI/Abdominal: Reports: Diarrhea, Nausea. Denies: Abdominal Pain, Vomiting Musculoskeletal: Reports: No Symptoms Skin: Reports: No Symptoms Neurological: Reports: Headache. Denies: Confusion, Dizziness, Trouble Speaking , Difficulty Walking, Change in Speech Psychiatric: Reports: No Symptoms Hematologic/Lymphatic: Reports: No Symptoms ED EXAM, GENERAL - Physical Exam Exam: See Below Exam Limited By: No Limitations General Appearance: Alert, WD/WN, No Apparent Distress Ears: Normal External Exam, Normal Canal, Hearing Grossly Normal, Normal TMs Nose: Normal Inspection, Normal Mucosa, No Blood Throat/Mouth: Normal Inspection, Normal Lips, Normal Teeth, Normal Gums, Normal Oropharynx, Normal Voice, No Airway Compromise Head: Atraumatic, Normocephalic. No: Facial Tenderness, Sinus Tenderness Neck: Normal Inspection, Supple, Non-Tender, Full Range of Motion Respiratory/Chest: No Respiratory Distress, Lungs Clear, Normal Breath Sounds, No Accessory Muscle Use, Chest Non-Tender Cardiovascular: Normal Peripheral Pulses, Regular Rate, Rhythm, No Edema, No Gallop, No JVD, No Murmur, No Rub GI/Abdominal: Normal Bowel Sounds, Soft, Non-Tender, No Organomegaly, No Distention, No Abnormal Bruit, No Mass Extremities: Normal Inspection, Normal Range of Motion, Non-Tender, Normal Capillary Refill, No Pedal Edema Neurological: Alert, Oriented, CN II-XII Intact, Normal Cognition, Normal Gait, Normal Reflexes, No Motor/Sensory Deficits Psychiatric: Normal Affect, Normal Mood Skin Exam: Warm, Dry, Intact, Normal Color, No Rash Course - Vital Signs Last Recorded V/S: Last Vital Signs Temp 99.1 F 04/13/19 13:24 Pulse 80 04/13/19 13:24 Resp 17 04/13/19 13:24 BP 150/103 H 04/13/19 13:24 Pulse Ox 95 04/13/19 13:24 - Orders/Labs/Meds Orders: Active Orders 24 hr Category Date Time Status Peripheral IV Care [RC] . DIRECTED Care 04/13/19 13:52 Active Chest 2V [CR] Stat Exams 04/13/19 13:51 Taken Sodium Chloride 0.9% [Normal Saline] 1,000 ml Med 04/13/19 14:00 Active IV ASDIRECTED Sodium Chloride 0.9% [Saline Flush] Med 04/13/19 13:51 Active 10 ml FLUSH ASDIRECTED PRN Peripheral IV Insertion Adult [OM.PC] Stat Oth 04/13/19 13:51 Ordered Medication Orders Sodium Chloride (Normal Saline) 1,000 mls @ 999 mls/hr IV ASDIRECTED RICHARD Last Admin: 04/13/19 14:37 Dose: 999 mls/hr Sodium Chloride (Saline Flush) 10 ml FLUSH ASDIRECTED PRN PRN Reason: Keep Vein Open Last Admin: 04/13/19 14:38 Dose: 10 ml Labs: Laboratory Tests 04/13/19 04/13/19 04/13/19 Range/Units 14:50 14:56 14:56 WBC 8.29 (3.98-10.04) K/mm3 RBC 4.10 (3.98-5.22) M/mm3 Hgb 12.1 (11.2-15.7) gm/dl Hct 36.1 (34.1-44.9) % MCV 88.0 (79.4-94.8) fl MCH 29.5 (25.6-32.2) pg MCHC 33.5 (32.2-35.5) g/dl RDW Std Deviation 37.2 (36.4-46.3) fL Plt Count 284 (182-369) K/mm3 MPV 10.9 (9.4-12.3) fl Neut % (Auto) 64.2 (34.0-71.1) % Lymph % (Auto) 28.0 (19.3-51.7) % [place] % (Auto) 6.0 (4.7-12.5) % Eos % (Auto) 1.3 (0.7-5.8) Baso % (Auto) 0.4 (0.1-1.2) % Neut # (Auto) 5.32 (1.56-6.13) K/mm3 Lymph # (Auto) 2.32 (1.18-3.74) K/mm3 [place] # (Auto) 0.50 H (0.24-0.36) K/mm3 Eos # (Auto) 0.11 (0.04-0.36) K/mm3 Baso # (Auto) 0.03 (0.01-0.08) K/mm3 Sodium 141 (136-145) mEq/L Potassium 3.8 (3.5-5.1) mEq/L Chloride 106 (98-107) mEq/L Carbon Dioxide 26 (21-32) mEq/L Anion Gap 12.8 (5-15) BUN 5 L (7-18) mg/dL Creatinine 0.8 (0.55-1.02) mg/dL Est Cr Clr Drug Dosing 87.51 mL/min Estimated GFR (MDRD) > 60 (>60) mL/min BUN/Creatinine Ratio 6.3 L (14-18) Glucose 88 (74-106) mg/dL Calcium 9.1 (8.5-10.1) mg/dL Total Bilirubin 0.3 (0.2-1.0) mg/dL AST 17 (15-37) U/L ALT 38 (14-59) U/L Alkaline Phosphatase 92 (46-116) U/L C-Reactive Protein 0.5 (<1.0) mg/dL Total Protein 7.4 (6.4-8.2) g/dl Albumin 4.0 (3.4-5.0) g/dl Globulin 3.4 gm/dL Albumin/Globulin Ratio 1.2 (1-2) Urine Color Yellow (Yellow) Urine Appearance Clear (Clear) Urine pH 7.0 (5.0-8.0) Ur Specific [place] 1.020 (1.005-1.030) Urine Protein Negative (Negative) Urine Glucose (UA) Negative (Negative) Urine Ketones Negative (Negative) Urine Occult Blood Negative (Negative) Urine Nitrite Negative (Negative) Urine Bilirubin Negative (Negative) Urine Urobilinogen 0.2 (0.2-1.0) Ur Leukocyte Esterase Negative (Negative) Urine RBC 0-5 (0-5) /hpf Urine WBC 0-5 (0-5) /hpf Ur Squamous Epith Cells 5-10 H (0-5) /hpf Urine Bacteria Occasional (FEW) /hpf Urine Mucus Not seen (FEW) /hpf Meds: Medications Generic Name Dose Route Start Last Admin Trade Name Freq PRN Reason Stop Dose Admin Sodium Chloride 1,000 mls @ 999 mls/hr 04/13/19 14:00 04/13/19 14:37 Normal Saline IV 999 mls/hr ASDIRECTED RICHARD Administration Sodium Chloride 10 ml 04/13/19 13:51 04/13/19 14:38 Saline Flush FLUSH 10 ml ASDIRECTED PRN Administration Keep Vein Open Discontinued Medications Generic Name Dose Route Start Last Admin Trade Name Freq PRN Reason Stop Dose Admin Hydromorphone HCl 0.5 mg 04/13/19 16:14 04/13/19 16:21 Dilaudid IVPUSH 04/13/19 16:15 0.5 mg ONETIME ONE Administration Ketorolac Tromethamine 30 mg 04/13/19 13:51 04/13/19 14:37 Toradol IVPUSH 04/13/19 13:52 30 mg ONETIME ONE Administration Ondansetron HCl 4 mg 04/13/19 14:31 04/13/19 14:37 Zofran IVPUSH 04/13/19 14:32 4 mg ONETIME ONE Administration - Re-Assessments/Exams Free Text/Narrative Re-Assessment/Exam: 04/13/19 17:06 Patient's hematology and urinalysis were grossly unremarkable. Influenza screen was negative. She did receive a liter of IV fluids as well as Toradol. She states that the Toradol did improve her body aches and helped her headache a little bit, however she was still having had pain. We did do Dilaudid 0.5 mg IV which she states did resolve her headache. She states she is feeling much better and ready to go home. Discussed with her that her symptoms may be the residual of the mycoplasma pneumonia that she had or it is possible that she is suffering from another viral illness in addition to this. Recommended that she go home and rest ensure that she has adequate fluid intake. Patient states that she was given a few [place] from her primary care provider on Monday to help with her headache and body aches, however she ran out of those on . I will write a prescription for an additional 5 [place] for her to use if the Tylenol or ibuprofen not working. Discharge instructions as documented. Departure - Departure Time of Disposition: 17:07 Disposition: Home, Self-Care 01 Condition: Fair Clinical Impression: Viral syndrome - Discharge Information *PRESCRIPTION DRUG MONITORING PROGRAM REVIEWED*: No *COPY OF PRESCRIPTION DRUG MONITORING REPORT IN PATIENT FLORIAN: No Prescriptions: Acetaminophen/HYDROcodone [[place] 325-5 MG] 1 tab PO Q6H PRN #5 tablet PRN Reason: Pain Instructions: Viral Illness, Adult Referrals: Lilia Ballard PA-C [Primary Care Provider] - Additional Instructions: You were seen in the emergency department today for headache, body aches, and nausea. Your work-up included blood work, a chest x-ray, and an influenza screen. Your work-up was found to be normal. There were no signs of a bacterial infection. We were not rechecked for mycoplasma pneumonia as this would likely still test positive since he was just recently treated. While in the ER you received a liter of IV fluids, Toradol, Zofran as well as a dose of Dilaudid. You stated that these did improve your symptoms. I recommend at this time that she go home and rest. Ensure that you have adequate fluid intake. You may continue to use [id number] Tylenol or ibuprofen as needed for headache and body aches. A prescription for [place] has been sent to [place] [facility]. Use these as needed if the Tylenol and ibuprofen is not working. If you experience any worsening symptoms, please do not hesitate to return to the emergency department. Sepsis Event Note - Evaluation Sepsis Screening Result: No Definite Risk - Focused Exam Vital Signs: Vital Signs Temp Pulse Resp BP Pulse Ox 04/13/19 13:24 99.1 F 80 17 150/103 H 95 Date Exam was Performed: 04/13/19 Time Exam was Performed: 16:59 - My Orders Last 24 Hours: My Active Orders 04/13/19 13:51 Chest 2V [CR] Stat Sodium Chloride 0.9% [Saline Flush] 10 ml FLUSH ASDIRECTED PRN Peripheral IV Insertion Adult [OM.PC] Stat 04/13/19 13:52 Peripheral IV Care [RC] . DIRECTED 04/13/19 14:00 Sodium Chloride 0.9% [Normal Saline] 1,000 ml IV ASDIRECTED - Assessment/Plan Last 24 Hours: My Active Orders 04/13/19 13:51 Chest 2V [CR] Stat Sodium Chloride 0.9% [Saline Flush] 10 ml FLUSH ASDIRECTED PRN Peripheral IV Insertion Adult [OM.PC] Stat 04/13/19 13:52 Peripheral IV Care [RC] . DIRECTED 04/13/19 14:00 Sodium Chloride 0.9% [Normal Saline] 1,000 ml IV ASDIRECTED
[2019-04-13 17:23] VITALS: BP 132/79; PULSE 89
--- NOTE | 2019-04-14 13:52 | CR ---
Chest: PA and lateral views of the chest were obtained. Comparison: No prior chest imaging. Heart size and mediastinum are normal. Lungs are clear with no acute parenchymal change. Bony structures appear within normal limits for the patient's age. Surgical clips are seen within the upper abdomen. Impression: 1. Nothing acute is appreciated on two-view chest x-ray. Diagnostic code #2 Study was dictated in [place] Standard Time
== END 2019-04-13 17:19 | disposition home or self-care (01) ==
LOC: JD.ED 13:00
DX: B34.9 Viral infection, unspecified (principal); K21.9 Gastro-esophageal reflux disease without esophagitis; F41.9 Anxiety disorder, unspecified; F32.9 Major depressive disorder, single episode, unspecified; Z88.8 Allergy status to other drugs, medicaments and biological substances; Z79.899 Other long term (current) drug therapy
CPT/HCPCS: 36415; 71046; 80053; 81001; 85025; 86140; 87804; 96361; 96374; 96375; 99284; J1170; J1885; J2405; J7030

== ENCOUNTER 2019-11-09 15:58 | Emergency (ER) | payer BC ==
--- NOTE | 2019-11-09 16:25 | EDM.PDOC ---
ED HPI GENERAL MEDICAL PROBLEM - General Chief Complaint: Headache Stated Complaint: SHINGLES,HEADACHE,VOMITING Time Seen by Provider: 11/09/19 16:22 - History of Present Illness INITIAL COMMENTS - FREE TEXT/NARRATIVE: 39-year-old female presents the emergency room with a headache. And she was recently diagnosed with shingles at the base of her skull. On Monday of this week the patient was diagnosed with shingles was started on acyclovir and gabapentin 150 mg 3 times a day. Her head pain escalated with this. On the increase the gabapentin to 300 mg 3 times a day. She has not had fevers or chills and other than that the headache has not had any symptoms other than nausea and vomiting. She does not carry a history of prior migraines. But she has not been able to keep anything down for the last several days. The shingles were diagnosed on the right side of her scalp just at the base of the skull. The lesion she had there is for the most part gone according to the patient. Headache Pain Score (Numeric/FACES): 9 - Related Data Allergies Allergy/AdvReac Type Severity Reaction Status Date / Time fluoxetine HCl [From Prozac] AdvReac Unknown Hallucinati Verified 11/09/19 16:16 ons prednisone AdvReac Unknown Hallucinati Verified 11/09/19 16:16 ons Home Meds: Home Meds Venlafaxine [Effexor XR] 75 mg PO DAILY 04/25/16 [History] Cetirizine [ZyrTEC] 10 mg PO DAILY 06/14/16 [History] Fluticasone Propionate [Flonase] 1 spray NASBOTH DAILY PRN 06/14/16 [History] traMADol [Ultram] 50 mg PO DAILY PRN 04/13/19 [History] Gabapentin [Neurontin] 300 mg PO TID 11/09/19 [History] LORazepam [Ativan] 1 - 2 mg PO DAILY PRN 11/09/19 [History] valACYclovir HCl [valACYclovir] 100 mg PO TID 11/09/19 [History] Past Medical History - Past Health History Medical/Surgical History: Denies Medical/Surgical History HEENT History: Reports: Allergic Rhinitis, Impaired Vision Other HEENT History: wears glasses Cardiovascular History: Reports: None Respiratory History: Reports: Bronchitis, Recurrent, Sleep Apnea Gastrointestinal History: Reports: GERD Genitourinary History: Reports: Other (See Below) DENSITOMETER READER History: Reports: Other DENSITOMETER READER History: dysmenorrhea Musculoskeletal History: Reports: None Neurological History: Reports: None Psychiatric History: Reports: Anxiety, Depression Endocrine/Metabolic History: Reports: None Hematologic History: Reports: Anemia Immunologic History: Reports: None Oncologic (Cancer) History: Reports: None Dermatologic History: Reports: None - Infectious Disease History Infectious Disease History: Reports: Shingles - Past Surgical History Head Surgeries/Procedures: Reports: None Cardiovascular Surgical History: Reports: None Respiratory Surgical History: Reports: None GI Surgical History: Reports: Cholecystectomy Other Female Surgeries/Procedures: x2 Endocrine Surgical History: Reports: None Neurological Surgical History: Reports: None Musculoskeletal Surgical History: Reports: Shoulder Surgery, Other (See Below) Other Musculoskeletal Surgeries/Procedures:: ligament repair Oncologic Surgical History: Reports: None Dermatological Surgical History: Reports: None Social & Family History - Family History Family Medical History: Noncontributory - Tobacco Use Smoking Status *Q: Never Smoker - Caffeine Use Caffeine Use: Reports: Coffee, Soda - Recreational Drug Use Recreational Drug Use: No - Living Situation & Occupation Living situation: Reports: , with Spouse, with Family (2 kids) 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 Denies: Dizziness, Pre-Existing Deficit, Seizure, Syncope Psychiatric: Reports: No Symptoms Hematologic/Lymphatic: Reports: No Symptoms Immunologic: Reports: No Symptoms - Physical Exam Exam: See Below Exam Limited By: No Limitations General Appearance: Alert, No Apparent Distress Eye Exam: Bilateral Eye: EOMI, Normal Inspection, PERRL Ears: Normal External Exam, Normal Canal, Hearing Grossly Normal, Normal TMs Nose: Normal Inspection, Normal Mucosa, No Blood Throat/Mouth: Normal Inspection, Normal Lips, Normal Teeth, Normal Gums, Normal Oropharynx, Normal Voice, No Airway Compromise Head Exam: Atraumatic, Normocephalic, Other (Where her shingles was diagnosed she is got a little bit of redness remaining there no blisters or ulcers pretty small area about dime size) Neck: Normal Inspection, Supple, Non-Tender, Full Range of Motion. No: Lymphadenopathy (L) Respiratory/Chest: No Respiratory Distress, Lungs Clear, Normal Breath Sounds Cardiovascular: Regular Rate, Rhythm, No Edema, No Murmur GI/Abdominal: Normal Bowel Sounds, Soft, Non-Tender Neuro Exam (Abbreviated): Other (Cranial nerves II through XII grossly intact all muscle groups the upper lower extremities are equal and appropriate bilaterally deep tendon reflexes are equal and appropriate at the brachial radialis bilaterally cerebellar testing is entirely within normal limits.) Back Exam: Normal Inspection. No: CVA Tenderness (L), CVA Tenderness (R), Vertebral Tenderness Extremities: Normal Inspection, No Pedal Edema Psychiatric: Normal Affect, Normal Mood Course - Vital Signs Last Recorded V/S: Last Vital Signs Temp 36.7 C 11/09/19 16:14 Pulse 78 11/09/19 17:04 Resp 15 11/09/19 16:14 BP 130/73 11/09/19 17:04 Pulse Ox 98 11/09/19 17:04 - Orders/Labs/Meds Meds: Medications Discontinued Medications Generic Name Dose Route Start Last Admin Trade Name Freq PRN Reason Stop Dose Admin Diphenhydramine HCl 50 mg 11/09/19 16:44 11/09/19 17:02 Benadryl IVPUSH 11/09/19 16:45 50 mg ONETIME ONE Administration Lactated Ringer's 1,000 mls @ 999 mls/hr 11/09/19 16:44 11/09/19 17:01 Ringers, Lactated IV 11/09/19 17:44 999 mls/hr .BOLUS ONE Administration Ketorolac Tromethamine 15 mg 11/09/19 18:00 11/09/19 18:10 Toradol IVPUSH 11/09/19 18:01 15 mg ONETIME ONE Administration Ondansetron HCl 4 mg 11/09/19 16:44 11/09/19 17:01 Zofran IVPUSH 11/09/19 16:45 4 mg ONETIME ONE Administration - Re-Assessments/Exams Free Text/Narrative Re-Assessment/Exam: 11/09/19 19:00 During initial evaluation the patient was found to have a normal neurologic examination. Patient received Zofran IV fluids Benadryl and had some improvement her pain was down about a 7 she then received 15 mg of IV Toradol and her pain is down to a 5 or 6. At this point will attempt to send the patient home to sleep this off, she is in agreement to this. She should continue her current medications. Tylenol as needed for headache. Departure - Departure Time of Disposition: 19:03 Disposition: Home, Self-Care 01 Clinical Impression: Cephalgia, Shingles - Discharge Information Referrals: Lilia Ballard PA-C [Primary Care Provider] - Forms: ED Department Discharge Additional Instructions: Return to the emergency room with any questions problems or worsening symptoms. Go straight home and get some sleep. Clear liquid diet tonight then slowly advance in the morning as tolerated. Continue your routine medications. Sepsis Event Note (ED) - Evaluation Sepsis Screening Result: No Definite Risk - Focused Exam Vital Signs: Vital Signs Temp Pulse Resp BP Pulse Ox 11/09/19 17:04 78 130/73 98 11/09/19 16:32 85 135/82 99 11/09/19 16:14 36.7 C 79 15 135/82 98
[2019-11-09] MEDS ORDERED: Lactated Ringers 1,000 ML IV ONE (16:44)
[2019-11-09] MEDS ORDERED: diphenhydrAMINE 50 MG/ML SDV IVPUSH ONE (16:44)
[2019-11-09] MEDS ORDERED: Ondansetron 4 MG/2 ML SDV IVPUSH ONE (16:44)
[2019-11-09 17:05] VITALS: BP 130/73; PULSE 78
[2019-11-09] MEDS ORDERED: Ketorolac 15 MG/ML SDV IVPUSH ONE (18:00)
== END 2019-11-09 19:25 | disposition home or self-care (01) ==
LOC: JD.ED 15:58
DX: B02.9 Zoster without complications (principal); R51.9 Headache, unspecified; F41.9 Anxiety disorder, unspecified; F32.9 Major depressive disorder, single episode, unspecified; Z88.8 Allergy status to other drugs, medicaments and biological substances; Z79.899 Other long term (current) drug therapy; Z90.49 Acquired absence of other specified parts of digestive tract
CPT/HCPCS: 96361; 96374; 96375; 99283; J1200; J1885; J2405; J7120

== ENCOUNTER 2020-10-04 15:56 | Emergency (ER) | payer BC ==
[2020-10-04 16:26] VITALS: BP 128/91; PULSE 74
--- NOTE | 2020-10-04 16:27 | EDM.PDOC ---
ED HPI GENERAL MEDICAL PROBLEM - General Chief Complaint: Headache Stated Complaint: HEADACHE Time Seen by Provider: 10/04/20 16:13 Source of Information: Reports: Patient, RN Notes Reviewed History Limitations: Reports: No Limitations - History of Present Illness INITIAL COMMENTS - FREE TEXT/NARRATIVE: Patient is a 40-year-old female who presents to the ER for the evaluation of her headache. States that she has been dealing with a right-sided ear infection, and has been on Augmentin for this. She developed a right-sided headache, that seems to be directly on the right side of her head, behind her eye. She has been taking Tylenol/ibuprofen/tizanidine/hydrocodone/Benadryl and other medications at home with little relief. She has no history of migraines, but was fairly certain that this might be a migraine. She is denying any blurred vision/double vision, or any sort of kaleidoscope type auras. She does state however that she is light and sound sensitive. Primary care provider is Krystal Ballard. Patient denies any other sick-like symptoms, fever/chills, cough/shortness of breath, nausea/vomiting/diarrhea. Right Head Pain Score (Numeric/FACES): 8 - Related Data Allergies Allergy/AdvReac Type Severity Reaction Status Date / Time fluoxetine HCl [From Prozac] AdvReac Severe Hallucinati Verified 10/04/20 16:18 ons prednisone AdvReac Severe Hallucinati Verified 10/04/20 16:18 ons Home Meds: Home Meds Venlafaxine [Effexor XR] 75 mg PO DAILY 04/25/16 [History] Cetirizine [ZyrTEC] 10 mg PO DAILY 06/14/16 [History] Fluticasone Propionate [Flonase] 1 spray NASBOTH DAILY PRN 06/14/16 [History] traMADol [Ultram] 50 mg PO DAILY PRN 04/13/19 [History] ALPRAZolam [Xanax] 0.5 mg PO BID PRN 10/04/20 [History] Pregabalin [Lyrica] 25 mg PO BID 10/04/20 [History] Past Medical History HEENT History: Reports: Allergic Rhinitis, Impaired Vision Other HEENT History: wears glasses Respiratory History: Reports: Bronchitis, Recurrent, Sleep Apnea Gastrointestinal History: Reports: GERD DOCUMENTUM CONSULTANT History: Reports: , Other (See Below) Other DOCUMENTUM CONSULTANT History: dysmenorrhea Psychiatric History: Reports: Anxiety, Depression Hematologic History: Reports: Anemia - Infectious Disease History Infectious Disease History: Reports: Chicken Pox, Shingles - Past Surgical History HEENT Surgical History: Reports: Oral Surgery, Tonsillectomy GI Surgical History: Reports: Cholecystectomy Female Surgical History: Reports: Section, Tubal Ligation, Other (See Below) Other Female Surgeries/Procedures: x2 Musculoskeletal Surgical History: Reports: Shoulder Surgery, Other (See Below) Other Musculoskeletal Surgeries/Procedures:: ligament repair Social & Family History - Family History Family Medical History: No Pertinent Family History - Tobacco Use Tobacco Use Status *Q: Never Tobacco User - Caffeine Use Caffeine Use: Reports: Coffee, Soda - Recreational Drug Use Recreational Drug Use: No - Living Situation & Occupation Living situation: Reports: , with Spouse, with Family (2 kids) 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 - Physical Exam Exam: See Below Exam Limited By: No Limitations General Appearance: Alert, WD/WN, No Apparent Distress Eye Exam: Bilateral Eye: EOMI, Normal Inspection, PERRL Ears: Normal External Exam, Normal Canal, Hearing Grossly Normal, Normal TMs Respiratory/Chest: No Respiratory Distress, Lungs Clear, Normal Breath Sounds, No Accessory Muscle Use, Chest Non-Tender Cardiovascular: Normal Peripheral Pulses, Regular Rate, Rhythm, No Edema Neuro Exam (Abbreviated): Alert, Oriented, Normal Cognition, No Motor/Sensory Deficits Extremities: Normal Inspection, Normal Capillary Refill Psychiatric: Normal Affect, Normal Mood Skin Exam: Warm, Dry, Intact, Normal Color, No Rash Course - Vital Signs Last Recorded V/S: Last Vital Signs Temp 97.5 F 10/04/20 16:24 Pulse 74 10/04/20 16:24 Resp 20 10/04/20 16:24 BP 128/91 H 10/04/20 16:24 Pulse Ox 99 10/04/20 16:24 - Orders/Labs/Meds Orders: Active Orders 24 hr Category Date Time Status SUMAtriptan [Imitrex] Med 10/04/20 18:04 Once 6 mg SUBCUT ONETIME ONE Meds: Medications Discontinued Medications Generic Name Dose Route Start Last Admin Trade Name Freq PRN Reason Stop Dose Admin Sumatriptan Succinate 6 mg 10/04/20 17:05 10/04/20 17:12 Sumatriptan 6 Mg/0.5 Ml Sdv SUBCUT 10/04/20 17:06 6 mg ONETIME ONE Administration - Re-Assessments/Exams Free Text/Narrative Re-Assessment/Exam: 10/04/20 17:15 Patient presents to the ER for her headache, since she has tried multiple medications at home of some the same classes we normally try here, I will go ahead and give her a dose of sumatriptan initially to see if this helps relieve some of her headache, if this does not then we will pursue other management options. 10/04/20 18:05 Patient notes pretty good relief of her headache from sumatriptan however we will go ahead and repeat the dose and discharge her home with general recommendations. She will follow up with her primary care provider this week for ongoing management. Departure - Departure Time of Disposition: 18:05 Disposition: Home, Self-Care 01 Condition: Good Clinical Impression: Migraine Qualifiers: Migraine type: other Status migrainosus presence: without status migrainosus Intractability: not intractable Qualified Code(s): G43.809 - Other migraine, not intractable, without status migrainosus - Discharge Information *PRESCRIPTION DRUG MONITORING PROGRAM REVIEWED*: No *COPY OF PRESCRIPTION DRUG MONITORING REPORT IN PATIENT FLORIAN: No Instructions: Migraine Headache, [id number] Referrals: Lilia Ballard PA-C [Primary Care Provider] - Forms: ED Department Discharge Additional Instructions: You were evaluated in the ED for your headache. You were given 2 doses of Imitrex or sumatriptan for management. This did seem to provide you pretty good relief of your symptoms. Recommend that you go home and rest in a quiet, darkened room. Try also to keep well hydrated. Recommend you follow-up with your regular care provider, sometime this week if this medication seem to help, for ongoing prescription and management of your headaches. Please return to the ED if your symptoms should change or worsen. Sepsis Event Note (ED) - Focused Exam Vital Signs: Vital Signs Temp Pulse Resp BP Pulse Ox 10/04/20 16:24 97.5 F 74 20 128/91 H 99 - My Orders Last 24 Hours: My Active Orders 10/04/20 18:04 SUMAtriptan [Imitrex] 6 mg SUBCUT ONETIME ONE - Assessment/Plan Last 24 Hours: My Active Orders 10/04/20 18:04 SUMAtriptan [Imitrex] 6 mg SUBCUT ONETIME ONE
[2020-10-04] MEDS ORDERED: SUMAtriptan 6 MG/0.5 ML SDV SUBCUT ONE ×2 (17:05→18:04)
== END 2020-10-04 18:13 | disposition home or self-care (01) ==
LOC: JD.ED 15:56
DX: G43.809 Other migraine, not intractable, without status migrainosus (principal); Z88.8 Allergy status to other drugs, medicaments and biological substances
CPT/HCPCS: 96372; 99283; J3030

== ENCOUNTER 2020-10-31 14:02 | Emergency (ER) | payer BC ==
[2020-10-31 14:18] VITALS: BP 119/88; PULSE 72
[2020-10-31] MEDS ORDERED: Sodium Chloride 0.9% 10 ML Syringe FLUSH PRN (14:21)
[2020-10-31] MEDS ORDERED: Sodium Chloride 0.9% 1,000 ML IV STA (15:09)
[2020-10-31] MEDS ORDERED: HYDROmorphone 0.5 MG/0.5 ML Syringe IVPUSH ONE (15:10)
[2020-10-31] MEDS ORDERED: Ondansetron 4 MG/2 ML SDV IVPUSH ONE (15:10)
--- NOTE | 2020-10-31 15:20 | EDM.PDOC ---
ED HPI GENERAL MEDICAL PROBLEM - General Chief Complaint: General Stated Complaint: BODY ACHES,FATIGUE,HEADACHE, COVID WAS NEG Time Seen by Provider: 10/31/20 14:11 Source of Information: Reports: Patient, RN Notes Reviewed History Limitations: Reports: No Limitations - History of Present Illness INITIAL COMMENTS - FREE TEXT/NARRATIVE: Patient is a 40-year-old female presenting to the emergency department with complaints of headache, body aches, fatigue, nausea, and diarrhea. Symptoms began on Monday of last week. She had a Covid exposure last Monday. She was seen by her primary care 2 times and tested for Covid at both occasions, both of which were negative. Patient denies any known fever. States she did have a mild cough earlier in the week, however this is resolved. She feels that her symptoms are not improving. She was prescribed a Medrol Dosepak which she just started taking this morning. Patient has a history of fibromyalgia and feels like she may be experiencing a flare of this. She was initially prescribed 3 Percocet to help her sleep at night which she states did help. She is now taking naproxen 500 mg twice daily which she states is not really doing much of anything. She tried hydrocodone with Tylenol that she had at home, however this did not provide any relief. Generalized Pain Score (Numeric/FACES): 8 - Related Data Allergies Allergy/AdvReac Type Severity Reaction Status Date / Time fluoxetine HCl [From Prozac] AdvReac Severe Hallucinati Verified 10/04/20 16:18 ons prednisone AdvReac Severe Hallucinati Verified 10/04/20 16:18 ons Home Meds: Home Meds Venlafaxine [Effexor XR] 75 mg PO DAILY 04/25/16 [History] Cetirizine [ZyrTEC] 10 mg PO DAILY 06/14/16 [History] Fluticasone Propionate [Flonase] 1 spray NASBOTH DAILY PRN 06/14/16 [History] traMADol [Ultram] 50 mg PO DAILY PRN 04/13/19 [History] ALPRAZolam [Xanax] 0.5 mg PO BID PRN 10/04/20 [History] Pregabalin [Lyrica] 25 mg PO BID 10/04/20 [History] Acetaminophen/oxyCODONE [Percocet 325-5 MG] 1 each PO Q6H PRN #5 tab 10/31/20 [Rx] Past Medical History - Past Health History Medical/Surgical History: Denies Medical/Surgical History HEENT History: Reports: Allergic Rhinitis, Impaired Vision Other HEENT History: wears glasses Cardiovascular History: Reports: None Respiratory History: Reports: Bronchitis, Recurrent Gastrointestinal History: Reports: GERD Genitourinary History: Reports: Other (See Below) LINE PRODUCER History: Reports: , Other (See Below) Other LINE PRODUCER History: dysmenorrhea Musculoskeletal History: Reports: None Neurological History: Reports: Migraines Psychiatric History: Reports: Anxiety, Depression Endocrine/Metabolic History: Reports: None Hematologic History: Reports: Anemia Immunologic History: Reports: Other (See Below) Other Immunologic History: fibromyalgia Oncologic (Cancer) History: Reports: None Dermatologic History: Reports: None - Infectious Disease History Infectious Disease History: Reports: Chicken Pox, Shingles - Past Surgical History HEENT Surgical History: Reports: Oral Surgery, Tonsillectomy Cardiovascular Surgical History: Reports: None GI Surgical History: Reports: Cholecystectomy Female Surgical History: Reports: Section, Hysterectomy, Tubal Ligation, Other (See Below) Other Female Surgeries/Procedures: x2 Endocrine Surgical History: Reports: None Musculoskeletal Surgical History: Reports: Shoulder Surgery, Other (See Below) Other Musculoskeletal Surgeries/Procedures:: ligament repair Social & Family History - Family History Family Medical History: No Pertinent Family History - Tobacco Use Tobacco Use Status *Q: Never Tobacco User - Caffeine Use Caffeine Use: Reports: Coffee, Soda - Recreational Drug Use Recreational Drug Use: No - Living Situation & Occupation Living situation: Reports: , with Spouse, with Family (2 kids) 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 ED EXAM, GENERAL - Physical Exam Exam: See Below Exam Limited By: No Limitations General Appearance: Alert, WD/WN, No Apparent Distress Throat/Mouth: Normal Inspection, Normal Lips, Normal Teeth, Normal Gums, Normal Oropharynx, Normal Voice, No Airway Compromise Neck: Normal Inspection, Supple, Non-Tender, Full Range of Motion Respiratory/Chest: No Respiratory Distress, Lungs Clear, Normal Breath Sounds, No Accessory Muscle Use, Chest Non-Tender Cardiovascular: Normal Peripheral Pulses, Regular Rate, Rhythm, No Edema, No Gallop, No JVD, No Murmur, No Rub GI/Abdominal: Normal Bowel Sounds, Soft, Non-Tender, No Organomegaly, No Distention, No Abnormal Bruit, No Mass Neurological: Alert, Oriented, CN II-XII Intact, Normal Cognition, Normal Gait, Normal Reflexes, No Motor/Sensory Deficits Psychiatric: Normal Affect, Normal Mood Skin Exam: Warm, Dry, Intact, Normal Color, No Rash Course - Vital Signs Last Recorded V/S: Last Vital Signs Temp 97.3 F 10/31/20 14:14 Pulse 72 10/31/20 14:14 Resp 14 10/31/20 14:14 BP 119/88 10/31/20 14:14 Pulse Ox 100 10/31/20 14:14 - Orders/Labs/Meds Labs: Laboratory Tests 10/31/20 10/31/20 10/31/20 Range/Units 15:17 15:17 15:40 WBC 10.09 H (3.98-10.04) K/mm3 RBC 4.35 (3.98-5.22) M/mm3 Hgb 12.9 (11.2-15.7) gm/dl Hct 37.7 (34.1-44.9) % MCV 86.7 (79.4-94.8) fl MCH 29.7 (25.6-32.2) pg MCHC 34.2 (32.2-35.5) g/dl RDW Std Deviation 36.9 (36.4-46.3) fL Plt Count 314 (182-369) K/mm3 MPV 11.0 (9.4-12.3) fl Neut % (Auto) 88.1 H (34.0-71.1) % Lymph % (Auto) 9.0 L (19.3-51.7) % [place] % (Auto) 2.6 L (4.7-12.5) % Eos % (Auto) 0 L (0.7-5.8) Baso % (Auto) 0.1 (0.1-1.2) % Neut # (Auto) 8.89 H (1.56-6.13) K/mm3 Lymph # (Auto) 0.91 L (1.18-3.74) K/mm3 [place] # (Auto) 0.26 (0.24-0.36) K/mm3 Eos # (Auto) 0.00 L (0.04-0.36) K/mm3 Baso # (Auto) 0.01 (0.01-0.08) K/mm3 Sodium 136 (136-145) mEq/L Potassium 3.8 (3.5-5.1) mEq/L Chloride 99 (98-107) mEq/L Carbon Dioxide 26 (21-32) mEq/L Anion Gap 14.8 (5-15) BUN 9 (7-18) mg/dL Creatinine 0.8 (0.55-1.02) mg/dL Est Cr Clr Drug Dosing 76.55 mL/min Estimated GFR (MDRD) > 60 (>60) mL/min BUN/Creatinine Ratio 11.3 L (14-18) Glucose 94 (70-99) mg/dL Calcium 9.2 (8.5-10.1) mg/dL Total Bilirubin 0.6 (0.2-1.0) mg/dL AST 18 (15-37) U/L ALT 41 (14-59) U/L Alkaline Phosphatase 102 (46-116) U/L C-Reactive Protein 1.0 (<1.0) mg/dL Total Protein 7.9 (6.4-8.2) g/dl Albumin 4.3 (3.4-5.0) g/dl Globulin 3.6 gm/dL Albumin/Globulin Ratio 1.2 (1-2) Urine Color (Yellow) Urine Appearance (Clear) Urine pH (5.0-8.0) Ur Specific [place] (1.005-1.030) Urine Protein (Negative) Urine Glucose (UA) (Negative) Urine Ketones (Negative) Urine Occult Blood (Negative) Urine Nitrite (Negative) Urine Bilirubin (Negative) Urine Urobilinogen (0.2-1.0) Ur Leukocyte Esterase (Negative) Urine RBC (0-5) /hpf Urine WBC (0-5) /hpf Ur Squamous Epith Cells (0-5) /hpf Urine Bacteria (FEW) /hpf Urine Mucus (FEW) /hpf SARS-CoV-2 RNA (RODRIGUE) Negative (NEGATIVE) 10/31/20 Range/Units 17:04 WBC (3.98-10.04) K/mm3 RBC (3.98-5.22) M/mm3 Hgb (11.2-15.7) gm/dl Hct (34.1-44.9) % MCV (79.4-94.8) fl MCH (25.6-32.2) pg MCHC (32.2-35.5) g/dl RDW Std Deviation (36.4-46.3) fL Plt Count (182-369) K/mm3 MPV (9.4-12.3) fl Neut % (Auto) (34.0-71.1) % Lymph % (Auto) (19.3-51.7) % [place] % (Auto) (4.7-12.5) % Eos % (Auto) (0.7-5.8) Baso % (Auto) (0.1-1.2) % Neut # (Auto) (1.56-6.13) K/mm3 Lymph # (Auto) (1.18-3.74) K/mm3 [place] # (Auto) (0.24-0.36) K/mm3 Eos # (Auto) (0.04-0.36) K/mm3 Baso # (Auto) (0.01-0.08) K/mm3 Sodium (136-145) mEq/L Potassium (3.5-5.1) mEq/L Chloride (98-107) mEq/L Carbon Dioxide (21-32) mEq/L Anion Gap (5-15) BUN (7-18) mg/dL Creatinine (0.55-1.02) mg/dL Est Cr Clr Drug Dosing mL/min Estimated GFR (MDRD) (>60) mL/min BUN/Creatinine Ratio (14-18) Glucose (70-99) mg/dL Calcium (8.5-10.1) mg/dL Total Bilirubin (0.2-1.0) mg/dL AST (15-37) U/L ALT (14-59) U/L Alkaline Phosphatase (46-116) U/L C-Reactive Protein (<1.0) mg/dL Total Protein (6.4-8.2) g/dl Albumin (3.4-5.0) g/dl Globulin gm/dL Albumin/Globulin Ratio (1-2) Urine Color Yellow (Yellow) Urine Appearance Clear (Clear) Urine pH 7.5 (5.0-8.0) Ur Specific [place] 1.020 (1.005-1.030) Urine Protein Negative (Negative) Urine Glucose (UA) Negative (Negative) Urine Ketones 2+ H (Negative) Urine Occult Blood Negative (Negative) Urine Nitrite Negative (Negative) Urine Bilirubin Negative (Negative) Urine Urobilinogen 0.2 (0.2-1.0) Ur Leukocyte Esterase Negative (Negative) Urine RBC Not seen (0-5) /hpf Urine WBC 0-5 (0-5) /hpf Ur Squamous Epith Cells 0-5 (0-5) /hpf Urine Bacteria Few (FEW) /hpf Urine Mucus Not seen (FEW) /hpf SARS-CoV-2 RNA (RODRIGUE) (NEGATIVE) Meds: Medications Discontinued Medications Generic Name Dose Route Start Last Admin Trade Name Freq PRN Reason Stop Dose Admin Hydromorphone HCl 0.5 mg 10/31/20 15:10 10/31/20 15:41 Hydromorphone 0.5 Mg/0.5 Ml Syringe IVPUSH 10/31/20 15:11 0.5 mg ONETIME ONE Administration Sodium Chloride 1,000 mls @ 999 mls/hr 10/31/20 15:09 10/31/20 15:42 Normal Saline IV 10/31/20 16:09 999 mls/hr NOW STA Administration Ondansetron HCl 4 mg 10/31/20 15:10 10/31/20 15:41 Ondansetron 4 Mg/2 Ml Sdv IVPUSH 10/31/20 15:11 4 mg ONETIME ONE Administration Sodium Chloride 10 ml 10/31/20 14:21 10/31/20 15:42 Sodium Chloride 0.9% 10 Ml Syringe FLUSH 10 ml ASDIRECTED PRN Administration Keep Vein Open - Re-Assessments/Exams Free Text/Narrative Re-Assessment/Exam: 10/31/20 17:53 Work-up is grossly unremarkable. Covid is negative. Urinalysis is negative for infection. Chest x-ray is normal. Patient is feeling somewhat better after the IV fluids and pain medications. I will send prescription for 5 Percocet that she may take in the night to help her sleep. Discussed if she is not better by Monday or Monday, she should follow-up with her primary care provider. Discharge instructions as documented. Departure - Departure Time of Disposition: 17:53 Disposition: Home, Self-Care 01 Condition: Good Clinical Impression: Viral syndrome - Discharge Information *PRESCRIPTION DRUG MONITORING PROGRAM REVIEWED*: Yes *COPY OF PRESCRIPTION DRUG MONITORING REPORT IN PATIENT [place]OR[place]: No Prescriptions: Acetaminophen/oxyCODONE [Percocet 325-5 MG] 1 each PO Q6H PRN #5 tab PRN Reason: Pain Instructions: Viral Illness, Adult Referrals: Lilia Ballard PA-C [Primary Care Provider] - Forms: ED Department Discharge Additional Instructions: You were seen in the emergency department today for evaluation of ongoing fatigue, body aches, headache. Work-up included blood work, chest x-ray, urinalysis, Covid test. Results of your work-up found to be normal. Covid is negative. As we discussed, you are likely suffering from viral illness combined with your fibromyalgia. Recommend rest and increased fluid intake. Continue to use the Medrol Dosepak and Naprosyn that was prescribed by your primary care provider. I have sent a short prescription for Percocets that she may use as needed for pain. If you are not feeling much better by Monday or Monday, recommend follow-up with your primary care. Return to ER as needed. Sepsis Event Note (ED) - Evaluation Sepsis Screening Result: No Definite Risk
--- NOTE | 2020-10-31 15:40 | CR ---
Chest: Frontal view of the chest was obtained. Comparison: Prior chest x-ray of 04/13/19. Heart size and mediastinum are normal. Small nodule faintly visualized within the right mid to lower lung. This appears to be stable from prior chest x-ray. Since no change has occurred this is felt to be benign. Lungs otherwise are clear. Bony structures show nothing acute. Impression: 1. Nothing acute is seen on frontal chest x-ray. 2. No change is seen from previous chest x-ray. Diagnostic code #1
== END 2020-10-31 18:21 | disposition home or self-care (01) ==
LOC: JD.ED 14:02
DX: B34.9 Viral infection, unspecified (principal); Z88.8 Allergy status to other drugs, medicaments and biological substances; Z20.822 Contact with and (suspected) exposure to COVID-19
CPT/HCPCS: 36415; 71045; 80053; 81001; 85025; 86140; 87635; 96374; 96375; 99284; J1170; J2405; J7030; U0002

== ENCOUNTER 2021-11-10 18:30 | Emergency (ER) | payer BC ==
[2021-11-10] MEDS ORDERED: HYDROmorphone 1 MG/ML Syringe IV ONE (19:43)
[2021-11-10] MEDS ORDERED: Ondansetron 4 MG/2 ML SDV ONE (20:19)
[2021-11-10] MEDS ORDERED: Ketorolac 30 MG/ML SDV ONE (20:19)
[2021-11-10] MEDS ORDERED: HYDROmorphone 1 MG/ML Syringe ONE (20:20)
[2021-11-10] MEDS ORDERED: Sodium Chloride 0.9% 1,000 ML ONE (20:20)
[2021-11-10] MEDS ORDERED: HYDROmorphone 0.5 MG/0.5 ML Syringe ONE (22:32)
[2021-11-10] MEDS ORDERED: HYDROmorphone 0.5 MG/0.5 ML Syringe IVPUSH ONE (22:36)
[2021-11-10] MEDS ORDERED: Ondansetron 4 MG/2 ML SDV IVPUSH ONE (23:15)
[2021-11-10] MEDS ORDERED: Ketorolac 30 MG/ML SDV IVPUSH ONE (23:16)
[2021-11-10] MEDS ORDERED: Sodium Chloride 0.9% 1,000 ML IV ONE (23:19)
[2021-11-11] MEDS ORDERED: Morphine 4 MG/ML Syringe IVPUSH ONE (00:41)
[2021-11-11] MEDS ORDERED: Acetaminophen/HYDROcodone 325-5 MG Tab PO ONE (01:47)
[2021-11-11] MEDS ORDERED: Gabapentin 300 MG Cap PO ONE (01:48)
[2021-11-17 01:16] VITALS: BP 135/90; PULSE 70
== END 2021-11-10 22:35 | disposition home or self-care (01) ==
LOC: JD.ED 18:30
DX: M06.9 Rheumatoid arthritis, unspecified (principal)
CPT/HCPCS: 96361; 96374; 96375; 96376; 99283; J1170; J1885; J2405; J7030; 99282

== ENCOUNTER 2021-12-08 11:23 | Emergency (ER) | payer BC ==
[2021-12-08 11:49] VITALS: BP 140/110; PULSE 67
[2021-12-08] MEDS ORDERED: Ketorolac 60 MG/2 ML SDV IM ONE (11:51)
[2021-12-08] MEDS ORDERED: HYDROmorphone 1 MG/ML Syringe IM ONE (11:51)
[2021-12-08] MEDS ORDERED: Ondansetron 4 MG Tab.DIS PO ONE (11:52)
== END 2021-12-08 12:20 | disposition home or self-care (01) ==
LOC: JD.ED 11:23
DX: M06.9 Rheumatoid arthritis, unspecified (principal); Z88.8 Allergy status to other drugs, medicaments and biological substances; Z79.899 Other long term (current) drug therapy; Z90.49 Acquired absence of other specified parts of digestive tract; Z90.710 Acquired absence of both cervix and uterus
CPT/HCPCS: 96372; 99283; A9270; J1170; J1885

== ENCOUNTER 2022-01-06 16:39 | Emergency (ER) | payer BC ==
[2022-01-06 17:09] VITALS: BP 118/89; PULSE 78
[2022-01-06] MEDS ORDERED: HYDROmorphone 1 MG/ML Syringe IM ONE (17:21)
[2022-01-06] MEDS ORDERED: Ketorolac 60 MG/2 ML SDV IM ONE (17:22)
[2022-01-06] MEDS ORDERED: Ondansetron 4 MG Tab.DIS PO ONE (17:22)
[2022-01-06] MEDS ORDERED: HYDROmorphone 0.5 MG/0.5 ML Syringe IM ONE (18:29)
== END 2022-01-06 19:30 | disposition home or self-care (01) ==
LOC: JD.ED 16:39
DX: M06.9 Rheumatoid arthritis, unspecified (principal); Z88.8 Allergy status to other drugs, medicaments and biological substances
CPT/HCPCS: 96372; 99283; A9270; J1170; J1885

== ENCOUNTER 2022-02-03 14:39 | Emergency (ER) | payer BC ==
[2022-02-03] MEDS ORDERED: Sodium Chloride 0.9% 10 ML Syringe FLUSH PRN (15:28)
[2022-02-03] MEDS ORDERED: Sodium Chloride 0.9% 1,000 ML IV ONE (15:29)
[2022-02-03] MEDS ORDERED: HYDROmorphone 1 MG/ML Syringe IVPUSH STA ×2 (15:29→18:43)
[2022-02-03] MEDS ORDERED: Ondansetron 4 MG/2 ML SDV IVPUSH ONE (15:29)
[2022-02-03] MEDS ORDERED: Potassium Chloride 20 MEQ Tab.ER PO ONE (17:24)
[2022-02-03 18:08] LABS: CORONAVIRUS COVID-19 NAA NEGATIVE (NEGATIVE)
[2022-02-03 19:10] VITALS: BP 126/83; PULSE 80
== END 2022-02-03 19:07 | disposition home or self-care (01) ==
LOC: JD.ED 14:39
DX: R19.7 Diarrhea, unspecified (principal); K21.9 Gastro-esophageal reflux disease without esophagitis; Z88.8 Allergy status to other drugs, medicaments and biological substances; Z20.822 Contact with and (suspected) exposure to COVID-19
CPT/HCPCS: 0240U; 36415; 80053; 85025; 96361; 96374; 96375; 96376; 99284; A9270; J1170; J2405; J3490; J7030

== ENCOUNTER 2022-02-26 15:23 | Emergency (ER) | payer BC ==
[2022-02-26] MEDS ORDERED: Ketorolac 30 MG/ML SDV IM ONE (15:49)
[2022-02-26] MEDS ORDERED: Ondansetron 4 MG Tab.DIS PO ONE (15:49)
[2022-02-26] MEDS ORDERED: HYDROmorphone 0.5 MG/0.5 ML Syringe IM ONE (15:50)
[2022-02-26 16:41] VITALS: BP 104/71; PULSE 67
== END 2022-02-26 16:36 | disposition home or self-care (01) ==
LOC: JD.ED 15:23
DX: M06.9 Rheumatoid arthritis, unspecified (principal); Z88.8 Allergy status to other drugs, medicaments and biological substances; Z79.899 Other long term (current) drug therapy; Z90.49 Acquired absence of other specified parts of digestive tract; Z90.710 Acquired absence of both cervix and uterus
CPT/HCPCS: 96372; 99283; A9270; J1170; J1885

== ENCOUNTER 2022-02-27 14:17 | Emergency (ER) | payer BC ==
[2022-02-27 15:03] VITALS: BP 132/91; PULSE 69
[2022-02-27] MEDS ORDERED: Ondansetron 4 MG Tab.DIS PO ONE (15:34)
[2022-02-27] MEDS ORDERED: Ketorolac 60 MG/2 ML SDV IM ONE (15:34)
[2022-02-27] MEDS ORDERED: HYDROmorphone 1 MG/ML Syringe IM ONE (15:35)
[2022-02-27] MEDS ORDERED: HYDROmorphone 0.5 MG/0.5 ML Syringe IVPUSH ONE (16:49)
[2022-02-27] MEDS ORDERED: HYDROmorphone 0.5 MG/0.5 ML Syringe IM ONE (16:56)
== END 2022-02-27 18:22 | disposition home or self-care (01) ==
LOC: JD.ED 14:17
DX: M25.532 Pain in left wrist (principal); M25.531 Pain in right wrist; M25.542 Pain in joints of left hand; M25.541 Pain in joints of right hand; M25.572 Pain in left ankle and joints of left foot; M25.571 Pain in right ankle and joints of right foot; Z88.8 Allergy status to other drugs, medicaments and biological substances
CPT/HCPCS: 96372; 99283; A9270; J1170; J1885

== ENCOUNTER 2022-03-08 13:46 | Emergency (ER) | payer BC ==
[2022-03-08] MEDS ORDERED: LORazepam 1 MG Tab PO ONE (14:29)
[2022-03-08] MEDS ORDERED: Ketorolac 60 MG/2 ML SDV IM ONE (14:32)
[2022-03-08] MEDS ORDERED: Acetaminophen/HYDROcodone 325-5 MG Tab PO ONE (14:32)
[2022-03-08 15:57] VITALS: BP 105/68; PULSE 62
== END 2022-03-08 16:06 | disposition home or self-care (01) ==
LOC: JD.ED 13:46
DX: F41.9 Anxiety disorder, unspecified (principal); F32.9 Major depressive disorder, single episode, unspecified; Z88.8 Allergy status to other drugs, medicaments and biological substances; Z79.899 Other long term (current) drug therapy; Z90.49 Acquired absence of other specified parts of digestive tract; Z90.710 Acquired absence of both cervix and uterus
CPT/HCPCS: 96372; 99283; A9270; J1885

== ENCOUNTER 2022-05-11 13:03 | Emergency (ER) | payer BC ==
[2022-05-11 13:15] VITALS: BP 135/97; PULSE 79
[2022-05-11] MEDS ORDERED: HYDROmorphone 1 MG/ML Syringe IVPUSH ONE (13:22)
[2022-05-11] MEDS ORDERED: Ketorolac 30 MG/ML SDV IVPUSH ONE (13:22)
[2022-05-11] MEDS ORDERED: Sodium Chloride 0.9% 1,000 ML IV STA (13:22)
[2022-05-11] MEDS ORDERED: HYDROmorphone 0.5 MG/0.5 ML Syringe IVPUSH ONE (15:00)
== END 2022-05-11 15:05 | disposition home or self-care (01) ==
LOC: JD.ED 13:03
DX: M25.50 Pain in unspecified joint (principal); Z88.8 Allergy status to other drugs, medicaments and biological substances
CPT/HCPCS: 96374; 96375; 96376; 99283; J1170; J1885; J7030

== ENCOUNTER 2022-06-07 15:18 | Emergency (ER) | payer BC ==
[2022-06-07 15:53] VITALS: PULSE 86
[2022-06-07 16:19] VITALS: BP 125/96
[2022-06-07] MEDS ORDERED: Ketorolac 30 MG/ML SDV IVPUSH ONE (16:28)
[2022-06-07] MEDS ORDERED: HYDROmorphone 0.5 MG/0.5 ML Syringe IVPUSH ONE ×2 (16:28→18:53)
[2022-06-07] MEDS ORDERED: Sodium Chloride 0.9% 1,000 ML IV ONE (16:28)
[2022-06-07 17:22] LABS: ESTIMATED GFR 81 mL/min (>60)
[2022-06-07] MEDS ORDERED: Potassium Chloride 20 MEQ Tab.ER PO ONE (17:37)
[2022-06-07 18:18] LABS: CORONAVIRUS COVID-19 NAA NEGATIVE (NEGATIVE)
== END 2022-06-07 19:25 | disposition home or self-care (01) ==
LOC: JD.ED 15:18
DX: E87.6 Hypokalemia (principal); Z88.8 Allergy status to other drugs, medicaments and biological substances; Z79.899 Other long term (current) drug therapy; Z90.49 Acquired absence of other specified parts of digestive tract; Z90.710 Acquired absence of both cervix and uterus; Z20.822 Contact with and (suspected) exposure to COVID-19
CPT/HCPCS: 0241U; 36415; 80053; 85025; 86140; 96361; 96374; 96375; 96376; 99284; A9270; J1170; J1885; J7030

== ENCOUNTER 2022-07-04 14:44 | Emergency (ER) | payer BC ==
[2022-07-04] MEDS ORDERED: LORazepam 2 MG/ML SDV IM ONE (16:52)
[2022-07-04] MEDS ORDERED: Ketorolac 30 MG/ML SDV IM ONE (16:53)
[2022-07-04 18:42] VITALS: BP 125/100; PULSE 77
== END 2022-07-04 17:18 | disposition home or self-care (01) ==
LOC: JD.ED 14:44
DX: G89.4 Chronic pain syndrome (principal); M25.50 Pain in unspecified joint; F11.20 Opioid dependence, uncomplicated; I10 Essential (primary) hypertension; Z86.16 Personal history of COVID-19; Z88.8 Allergy status to other drugs, medicaments and biological substances; Z79.899 Other long term (current) drug therapy
CPT/HCPCS: 96372; 99283; J1885; J2060

== ENCOUNTER 2022-07-05 10:56 | Emergency (ER) | payer BC ==
[2022-07-05] MEDS ORDERED: Sodium Chloride 0.9% 10 ML Syringe FLUSH PRN (11:17)
[2022-07-05] MEDS ORDERED: HYDROmorphone 1 MG/ML Syringe IVPUSH STA (11:17)
[2022-07-05] MEDS ORDERED: Ketorolac 30 MG/ML SDV IVPUSH ONE (11:17)
[2022-07-05] MEDS ORDERED: Sodium Chloride 0.9% 1,000 ML IV ONE (11:17)
[2022-07-05 12:43] VITALS: BP 120/78
[2022-07-05 12:44] VITALS: PULSE 64
[2022-07-05] MEDS ORDERED: HYDROmorphone 0.5 MG/0.5 ML Syringe IVPUSH ONE (12:50)
== END 2022-07-05 13:12 | disposition home or self-care (01) ==
LOC: JD.ED 10:56
DX: M79.10 Myalgia, unspecified site (principal); I10 Essential (primary) hypertension; Z88.8 Allergy status to other drugs, medicaments and biological substances; Z86.16 Personal history of COVID-19
CPT/HCPCS: 96361; 96374; 96375; 96376; 99283; J1170; J1885; J7030; 99284

== ENCOUNTER 2022-07-19 15:53 | Emergency (ER) | payer BC ==
[2022-07-19] MEDS ORDERED: HYDROmorphone 1 MG/ML Syringe IM ONE (17:10)
[2022-07-19] MEDS ORDERED: Ketorolac 60 MG/2 ML SDV IM ONE (17:10)
[2022-07-19] MEDS ORDERED: HYDROmorphone 0.5 MG/0.5 ML Syringe IM ONE (19:14)
[2022-07-20 00:33] VITALS: BP 133/82; PULSE 72
== END 2022-07-19 19:35 | disposition home or self-care (01) ==
LOC: JD.ED 15:53
DX: M25.50 Pain in unspecified joint (principal); I10 Essential (primary) hypertension; M19.90 Unspecified osteoarthritis, unspecified site; Z88.8 Allergy status to other drugs, medicaments and biological substances; Z86.16 Personal history of COVID-19
CPT/HCPCS: 96372; 99283; J1170; J1885

== ENCOUNTER 2022-08-02 10:19 | Emergency (ER) | payer BC ==
[2022-08-02] MEDS ORDERED: Dextrose 5%-0.9% NaCl 1,000 ML IV SCH (11:00)
[2022-08-02] MEDS ORDERED: HYDROmorphone 1 MG/ML Syringe IVPUSH ONE (11:00)
[2022-08-02] MEDS ORDERED: Ondansetron 4 MG/2 ML SDV IVPUSH ONE (11:03)
[2022-08-02] MEDS ORDERED: HYDROmorphone 0.5 MG/0.5 ML Syringe IVPUSH ONE (13:13)
[2022-08-02 17:18] VITALS: BP 129/67; PULSE 78
== END 2022-08-02 14:10 | disposition home or self-care (01) ==
LOC: JD.ED 10:19
DX: M25.512 Pain in left shoulder (principal); M25.532 Pain in left wrist; M25.522 Pain in left elbow; M54.50 Low back pain, unspecified; M25.571 Pain in right ankle and joints of right foot; I10 Essential (primary) hypertension; Z88.8 Allergy status to other drugs, medicaments and biological substances; X50.0XXA Overexertion from strenuous movement or load, initial encounter
CPT/HCPCS: 96361; 96374; 96375; 96376; 99283; J1170; J2405; J7042; 99284

== ENCOUNTER 2022-08-14 17:51 | Emergency (ER) | payer BC ==
[2022-08-14] MEDS ORDERED: Sodium Chloride 0.9% 10 ML Syringe FLUSH PRN (18:24)
[2022-08-14 18:43] LABS: BASOPHILS ABSOLUTE AUTO 0.02 K/mm3 (0.01-0.08); BASOPHILS PERCENT AUTO 0.2 % (0.1-1.2); EOSINOPHILS ABSOLUTE AUTO 0.09 K/mm3 (0.04-0.36); EOSINOPHILS PERCENT AUTO 0.8 (0.7-5.8); HEMATOCRIT 39.3 % (34.1-44.9); HEMOGLOBIN 13.2 gm/dl (11.2-15.7); IMMATURE GRAN ABSOLUTE AUTO 0.02 K/mm3 (0.00-0.10); IMMATURE GRAN PERCENT AUTO 0.2 % (<=1.0); LYMPHOCYTES ABSOLUTE AUTO 1.76 K/mm3 (1.18-3.74); LYMPHOCYTES PERCENT AUTO 15.2 % (19.3-51.7); MEAN CORPUSCULAR HEMOGLOBIN 29.8 pg (25.6-32.2); MEAN CORPUSCULAR HGB CONC 33.6 g/dl (32.2-35.5); MEAN CORPUSCULAR VOLUME 88.7 fl (79.4-94.8); MEAN PLATELET VOLUME 11.1 fl (9.4-12.3); MONOCYTES ABSOLUTE AUTO 1.03 K/mm3 (0.24-0.36); MONOCYTES PERCENT AUTO 8.9 % (4.7-12.5); NEUTROPHILS ABSOLUTE AUTO 8.65 K/mm3 (1.56-6.13); NEUTROPHILS PERCENT AUTO 74.7 % (34.0-71.1); PLATELET COUNT,PLT 316 K/mm3 (182-369); RED BLOOD CELL COUNT 4.43 M/mm3 (3.98-5.22); WHITE BLOOD CELL COUNT,WBC 11.57 K/mm3 (3.98-10.04)
[2022-08-14] MEDS ORDERED: Sodium Chloride 0.9% 1,000 ML IV STA (18:47)
[2022-08-14] MEDS ORDERED: Ketorolac 30 MG/ML SDV IVPUSH ONE (18:47)
[2022-08-14] MEDS ORDERED: HYDROmorphone 1 MG/ML Syringe IVPUSH ONE (18:47)
[2022-08-14] MEDS ORDERED: Ondansetron 4 MG/2 ML SDV IVPUSH ONE (18:47)
[2022-08-14 19:03] LABS: A/G RATIO 1.1 (1-2); ALANINE AMINOTRANSFERASE,ALT 27 U/L (14-59); ALKALINE PHOSPHATASE 89 U/L (46-116); ANION GAP 14.6 (5-15); ASPARTATE AMNIOTRANSFERASE,AST 13 U/L (15-37); BILIRUBIN TOTAL 0.6 mg/dL (0.2-1.0); BLOOD UREA NITROGEN,BUN 13 mg/dL (7-18); BUN/CREATININE RATIO 16.3 (14-18); CALCIUM 9.3 mg/dL (8.5-10.1); CARBON DIOXIDE,CO2 26 mEq/L (21-32); CHLORIDE,CL 101 mEq/L (98-107); CREATININE 0.8 mg/dL (0.55-1.02); EST CRCL DRUG DOSING (CG) 75.01 mL/min; ESTIMATED GFR 94 mL/min (>60); GLUCOSE RANDOM 91 mg/dL (70-99); POTASSIUM,K 3.6 mEq/L (3.5-5.1); PROTEIN TOTAL,TP 7.8 g/dl (6.4-8.2); SODIUM,NA 138 mEq/L (136-145)
[2022-08-14 19:06] LABS: C-REACTIVE PROTEIN < 0.2 mg/dL (<1.0)
[2022-08-14 19:33] LABS: APPEARANCE,URINE CLEAR (Clear); BILIRUBIN,URINE NEGATIVE (Negative); COLOR,URINE YELLOW (Yellow); GLUCOSE,URINE NEGATIVE (Negative); KETONES,URINE 1+ (Negative); LEUKOCYTE ESTERASE,URINE NEGATIVE (Negative); NITRITE,URINE NEGATIVE (Negative); OCCULT BLOOD,URINE NEGATIVE (Negative); PROTEIN,URINE NEGATIVE (Negative); UROBILINOGEN,URINE 0.2 (0.2-1.0)
[2022-08-14 19:41] LABS: BACTERIA,URINE FEW /hpf (FEW); HYALINE CASTS,URINE 0-5 /lpf (0-5); MUCUS,URINE FEW /hpf (FEW); RBC,URINE 0-5 /hpf (0-5); WBC,URINE 0-5 /hpf (0-5)
[2022-08-14] MEDS ORDERED: HYDROmorphone 0.5 MG/0.5 ML Syringe IVPUSH ONE (20:26)
[2022-08-14 20:46] VITALS: BP 121/85; PULSE 75
== END 2022-08-14 20:46 | disposition home or self-care (01) ==
LOC: JD.ED 17:51
DX: R52 Pain, unspecified (principal); I10 Essential (primary) hypertension; Z86.16 Personal history of COVID-19; Z88.8 Allergy status to other drugs, medicaments and biological substances; Z79.899 Other long term (current) drug therapy
CPT/HCPCS: 36415; 80053; 81001; 85025; 86140; 96374; 96375; 96376; 99284; J1170; J1885; J2405; J3490; J7030

== ENCOUNTER 2022-09-03 18:38 | Emergency (ER) | payer BC ==
[2022-09-03] MEDS ORDERED: Ketorolac 30 MG/ML SDV IM ONE (20:04)
[2022-09-03 20:42] VITALS: BP 141/87; PULSE 88
== END 2022-09-03 20:24 | disposition home or self-care (01) ==
LOC: JD.ED 18:38
DX: M79.7 Fibromyalgia (principal); I10 Essential (primary) hypertension; K21.9 Gastro-esophageal reflux disease without esophagitis; E66.9 Obesity, unspecified; Z68.37 Body mass index [BMI] 37.0-37.9, adult; Z88.8 Allergy status to other drugs, medicaments and biological substances
CPT/HCPCS: 96372; 99283; J1885

== ENCOUNTER 2022-09-04 11:14 | Emergency (ER) | payer BC ==
[2022-09-04] MEDS ORDERED: Ketorolac 60 MG/2 ML SDV IM ONE (12:18)
[2022-09-04 17:14] VITALS: BP 125/94; PULSE 59
== END 2022-09-04 13:40 | disposition home or self-care (01) ==
LOC: JD.ED 11:14
DX: G89.29 Other chronic pain (principal); I10 Essential (primary) hypertension; E66.9 Obesity, unspecified; Z68.36 Body mass index [BMI] 36.0-36.9, adult; Z88.8 Allergy status to other drugs, medicaments and biological substances; Z79.899 Other long term (current) drug therapy
CPT/HCPCS: 96372; 99283; J1885

== ENCOUNTER 2022-09-06 07:29 | Day surgery (SDC) | payer BC ==
[~2022-09-06 07:29] MED LIST changes: -Lidocaine 1%/Sod Bicarbonate in NS 8.4% 1 ML Syringe IV PRN; +Sodium Chloride 0.9% 10 ML Syringe FLUSH SCH
[2022-09-06] MEDS ORDERED: Propofol 200 MG/20 ML SDV ONE ×2 (08:24→09:29)
[2022-09-06] MEDS ORDERED: fentaNYL 100 MCG/2 ML SDV ONE (08:25)
[2022-09-06] MEDS ORDERED: Midazolam 1 MG/ML 2 ML SDV ONE (08:25)
[2022-09-06] MEDS ORDERED: Lidocaine 1% 4 ML ONE (08:25)
[2022-09-06 11:13] VITALS: BP 112/68; PULSE 70
== END 2022-09-06 10:50 | disposition home or self-care (01) ==
LOC: JD.SDS 07:29
PROVIDERS: ATTEND Specialist
DX: D53.9 Nutritional anemia, unspecified (principal); K29.80 Duodenitis without bleeding; I78.1 Nevus, non-neoplastic; J20.9 Acute bronchitis, unspecified; J30.9 Allergic rhinitis, unspecified; F41.9 Anxiety disorder, unspecified; E55.9 Vitamin D deficiency, unspecified; F32.A Depression, unspecified; R53.83 Other fatigue; M79.7 Fibromyalgia; I10 Essential (primary) hypertension; G43.909 Migraine, unspecified, not intractable, without status migrainosus; E66.9 Obesity, unspecified; F32.9 Major depressive disorder, single episode, unspecified; Z88.8 Allergy status to other drugs, medicaments and biological substances; Z68.36 Body mass index [BMI] 36.0-36.9, adult; Z79.899 Other long term (current) drug therapy; Z87.42 Personal history of other diseases of the female genital tract; Z90.710 Acquired absence of both cervix and uterus; Z98.51 Tubal ligation status
CPT/HCPCS: 43239; 45378; J2250; J2704; J3010; J7120; J3490

== ENCOUNTER 2022-09-17 16:00 | Emergency (ER) | payer BC ==
[2022-09-17] MEDS ORDERED: Sodium Chloride 0.9% 1,000 ML IV SCH (17:00)
[2022-09-17] MEDS ORDERED: HYDROmorphone 1 MG/ML Syringe IVPUSH ONE (17:27)
[2022-09-17] MEDS ORDERED: Ondansetron 4 MG/2 ML SDV IVPUSH ONE (17:28)
[2022-09-17] MEDS ORDERED: HYDROmorphone 0.5 MG/0.5 ML Syringe IVPUSH ONE (19:08)
[2022-09-17 19:55] VITALS: BP 121/87; PULSE 62
== END 2022-09-17 19:55 | disposition home or self-care (01) ==
LOC: JD.ED 16:00
DX: R51.9 Headache, unspecified (principal); G89.29 Other chronic pain; E23.2 Diabetes insipidus; E66.9 Obesity, unspecified; I10 Essential (primary) hypertension; Z79.899 Other long term (current) drug therapy; Z88.8 Allergy status to other drugs, medicaments and biological substances; Z68.36 Body mass index [BMI] 36.0-36.9, adult
CPT/HCPCS: 36415; 83930; 96361; 96374; 96375; 96376; 99284; J1170; J2405; J7030

== ENCOUNTER 2022-10-10 19:17 | Emergency (ER) | payer BC ==
[2022-10-10 19:25] VITALS: PULSE 80
[2022-10-10] MEDS ORDERED: Ketorolac 30 MG/ML SDV IVPUSH STA (20:15)
[2022-10-10] MEDS ORDERED: Ketorolac 30 MG/ML SDV IM STA (20:16)
[2022-10-10 20:21] LABS: BASOPHILS ABSOLUTE AUTO 0.1 K/mm3 (0.0-0.2); BASOPHILS PERCENT AUTO 0.9 % (0.0-1.0); EOSINOPHILS ABSOLUTE AUTO 0.2 K/mm3 (0.0-0.4); EOSINOPHILS PERCENT AUTO 2.9 % (0.0-6.0); HEMATOCRIT 35.4 % (37.0-47.0); HEMOGLOBIN 11.7 gm/dl (12.0-16.0); IMMATURE GRAN ABSOLUTE AUTO 0.01 K/mm3 (0.00-0.05); IMMATURE GRAN PERCENT AUTO 0.2 % (0.0-0.4); LYMPHOCYTES ABSOLUTE AUTO 2.3 K/mm3 (1.0-4.8); LYMPHOCYTES PERCENT AUTO 39.2 % (24.0-44.0); MEAN CORPUSCULAR HGB CONC 33.1 g/dl (32.0-36.0); MEAN CORPUSCULAR VOLUME 93.9 fl (83.0-99.0); MEAN PLATELET VOLUME 11.2 fl (9.4-12.3); MONOCYTES ABSOLUTE AUTO 0.5 K/mm3 (0.0-0.8); MONOCYTES PERCENT AUTO 9.2 % (0.0-8.0); NEUTROPHILS ABSOLUTE AUTO 2.8 K/mm3 (1.8-7.7); NEUTROPHILS PERCENT AUTO 47.6 % (41.0-71.0); PLATELET COUNT,PLT 261 K/mm3 (150-400); RED BLOOD CELL COUNT 3.77 M/mm3 (4.10-5.30); WHITE BLOOD CELL COUNT,WBC 5.87 K/mm3 (3.9-11.3)
[2022-10-10 20:33] LABS: D-DIMER QUANTITATIVE 0.48 mg/L (0.19-0.50); INR 0.95; PROTHROMBIN TIME 10.2 SECONDS (9.7-12.0)
[2022-10-10 20:34] LABS: PTT,PARTIAL THROMBOPLSTIN TIME 28.4 SECONDS (21.7-31.4)
[2022-10-10 20:42] LABS: A/G RATIO 1.1 (1-2); ALANINE AMINOTRANSFERASE,ALT 29 U/L (14-59); ALKALINE PHOSPHATASE 86 U/L (46-116); ANION GAP 11.4 (5-15); ASPARTATE AMNIOTRANSFERASE,AST 20 U/L (15-37); BILIRUBIN TOTAL 0.2 mg/dL (0.2-1.0); BLOOD UREA NITROGEN,BUN 6 mg/dL (7-18); BUN/CREATININE RATIO 7.5 (14-18); CALCIUM 9.3 mg/dL (8.5-10.1); CARBON DIOXIDE,CO2 29 mEq/L (21-32); CHLORIDE,CL 104 mEq/L (98-107); CREATININE 0.8 mg/dL (0.55-1.02); EST CRCL DRUG DOSING (CG) 75.01 mL/min; ESTIMATED GFR 94 mL/min (>60); GLUCOSE RANDOM 93 mg/dL (70-99); POTASSIUM,K 3.4 mEq/L (3.5-5.1); PROTEIN TOTAL,TP 7.7 g/dl (6.4-8.2); SODIUM,NA 141 mEq/L (136-145)
[2022-10-10 20:52] LABS: TROPONIN I HIGH SENSITIVITY < 4 pg/mL (<=51)
[2022-10-10] MEDS ORDERED: Ketorolac 15 MG/ML SDV IVPUSH ONE (20:55)
[2022-10-10 22:03] VITALS: BP 121/100
== END 2022-10-10 21:45 | disposition home or self-care (01) ==
LOC: JD.ED 19:17
DX: R07.89 Other chest pain (principal); I10 Essential (primary) hypertension; E66.9 Obesity, unspecified; Z68.37 Body mass index [BMI] 37.0-37.9, adult; Z88.8 Allergy status to other drugs, medicaments and biological substances; Z79.899 Other long term (current) drug therapy; Z90.49 Acquired absence of other specified parts of digestive tract; Z90.710 Acquired absence of both cervix and uterus
CPT/HCPCS: 36415; 71046; 80053; 83880; 84484; 85025; 85379; 85610; 85730; 93005; 96374; 99284; J1885; 93010

== ENCOUNTER 2022-12-20 11:24 | Emergency (ER) | payer BC ==
[2022-12-20] MEDS ORDERED: Sodium Chloride 0.9% 1,000 ML IV STA (12:22)
[2022-12-20] MEDS ORDERED: Ondansetron 4 MG/2 ML SDV IVPUSH ONE (12:22)
[2022-12-20] MEDS ORDERED: Sodium Chloride 0.9% 10 ML Syringe FLUSH PRN (12:22)
[2022-12-20] MEDS ORDERED: HYDROmorphone 0.5 MG/0.5 ML Syringe IVPUSH ONE (12:25)
[2022-12-20] MEDS ORDERED: Ketorolac 30 MG/ML SDV IVPUSH ONE (12:25)
[2022-12-20 12:51] LABS: APPEARANCE,URINE CLEAR (Clear); BILIRUBIN,URINE 1+ (Negative); COLOR,URINE YELLOW (Yellow); GLUCOSE,URINE NEGATIVE (Negative); KETONES,URINE 4+ (Negative); LEUKOCYTE ESTERASE,URINE NEGATIVE (Negative); NITRITE,URINE NEGATIVE (Negative); OCCULT BLOOD,URINE NEGATIVE (Negative); PROTEIN,URINE TRACE (Negative)
[2022-12-20 13:05] LABS: CORONAVIRUS COVID-19 NAA NEGATIVE (NEGATIVE); INFLUENZA A NAA NEGATIVE (NEGATIVE); RESPIRATORY SYNCYTIAL VIR NAA NEGATIVE (NEGATIVE)
[2022-12-20 13:22] LABS: BACTERIA,URINE FEW /hpf (FEW); MUCUS,URINE FEW /hpf (FEW); RBC,URINE 0-5 /hpf (0-5); SQUAMOUS EPITHELIAL CELLS,UR 0-5 /hpf (0-5); WBC,URINE 0-5 /hpf (0-5)
[2022-12-20 13:36] LABS: BASOPHILS PERCENT AUTO 0.3 % (0.0-1.0); EOSINOPHILS ABSOLUTE AUTO 0.1 K/mm3 (0.0-0.4); EOSINOPHILS PERCENT AUTO 1.2 % (0.0-6.0); HEMATOCRIT 33.2 % (37.0-47.0); HEMOGLOBIN 11.4 gm/dl (12.0-16.0); IMMATURE GRAN ABSOLUTE AUTO 0.02 K/mm3 (0.00-0.05); IMMATURE GRAN PERCENT AUTO 0.3 % (0.0-0.4); LYMPHOCYTES ABSOLUTE AUTO 1.2 K/mm3 (1.0-4.8); LYMPHOCYTES PERCENT AUTO 15.7 % (24.0-44.0); MEAN CORPUSCULAR HGB CONC 34.3 g/dl (32.0-36.0); MEAN CORPUSCULAR VOLUME 90.2 fl (83.0-99.0); MEAN PLATELET VOLUME 10.4 fl (9.4-12.3); MONOCYTES ABSOLUTE AUTO 0.5 K/mm3 (0.0-0.8); MONOCYTES PERCENT AUTO 6.3 % (0.0-8.0); NEUTROPHILS ABSOLUTE AUTO 5.8 K/mm3 (1.8-7.7); NEUTROPHILS PERCENT AUTO 76.2 % (41.0-71.0); PLATELET COUNT,PLT 246 K/mm3 (150-400); RED BLOOD CELL COUNT 3.68 M/mm3 (4.10-5.30); WHITE BLOOD CELL COUNT,WBC 7.62 K/mm3 (3.9-11.3)
[2022-12-20 14:00] LABS: A/G RATIO 0.9 (1-2); ALBUMIN 3.4 g/dl (3.4-5.0); ANION GAP 16.4 (5-15); BILIRUBIN TOTAL 0.4 mg/dL (0.2-1.0); BUN/CREATININE RATIO 8.6 (14-18); C-REACTIVE PROTEIN 0.6 mg/dL (<1.0); CALCIUM 8.8 mg/dL (8.5-10.1); CREATININE 0.7 mg/dL (0.55-1.02); EST CRCL DRUG DOSING (CG) 85.72 mL/min; POTASSIUM,K 3.4 mEq/L (3.5-5.1)
[2022-12-20] MEDS ORDERED: Acetaminophen/oxyCODONE 325-5 MG Tab PO ONE (15:11)
[2022-12-20 16:12] VITALS: BP 117/80; PULSE 72
== END 2022-12-20 15:30 | disposition home or self-care (01) ==
LOC: JD.ED 11:24
DX: B34.9 Viral infection, unspecified (principal); G89.4 Chronic pain syndrome; I10 Essential (primary) hypertension; K21.9 Gastro-esophageal reflux disease without esophagitis; E11.8 Type 2 diabetes mellitus with unspecified complications; E66.9 Obesity, unspecified; Z68.35 Body mass index [BMI] 35.0-35.9, adult; Z20.822 Contact with and (suspected) exposure to COVID-19; Z88.8 Allergy status to other drugs, medicaments and biological substances; Z79.899 Other long term (current) drug therapy
CPT/HCPCS: 0241U; 36415; 80053; 81001; 85025; 86140; 96361; 96374; 96375; 99284; A9270; J1170; J1885; J2405; J7030

== ENCOUNTER 2023-06-13 12:38 | Emergency (ER) | payer BC ==
[2023-06-13] MEDS: diphenhydrAMINE 50 MG/ML SDV IVPUSH ONE (13:57)
[2023-06-13] MEDS: Metoclopramide 10 MG/2 ML SDV IVPUSH ONE (13:57)
[2023-06-13] MEDS: Ketorolac 15 MG/ML SDV IVPUSH ONE (13:57)
[2023-06-13] MEDS: Lactated Ringers 500 ML IV SCH (13:57)
[2023-06-13] MEDS ORDERED: Naloxone 0.4 MG/ML SDV IVPUSH PRN (14:39)
[2023-06-13] MEDS: HYDROmorphone 0.5 MG/0.5 ML Syringe IVPUSH ONE (15:06)
[2023-06-13 19:30] VITALS: BP 132/83; PULSE 72
== END 2023-06-13 15:37 | disposition home or self-care (01) ==
LOC: JD.ED 12:38
DX: G43.909 Migraine, unspecified, not intractable, without status migrainosus (principal); I10 Essential (primary) hypertension; E66.9 Obesity, unspecified; E11.9 Type 2 diabetes mellitus without complications; Z68.34 Body mass index [BMI] 34.0-34.9, adult; Z88.8 Allergy status to other drugs, medicaments and biological substances; Z79.899 Other long term (current) drug therapy; Z90.49 Acquired absence of other specified parts of digestive tract; Z90.710 Acquired absence of both cervix and uterus
CPT/HCPCS: 96361; 96374; 96375; 99283; J1170; J1200; J1885; J2765; J7120; 99284